=== PATIENT | female | born 1970 | race Caucasian/White ===

== ENCOUNTER 2021-01-13 15:52 | Emergency (ER) | payer SELFPAY ==
[2021-01-13 17:25] VITALS: BP 0/0; PULSE 0; RESP 0; TEMP -17.7; TEMP 0
== END 2021-01-13 17:30 | disposition left against medical advice (07) ==
LOC: UTC 15:59
PROVIDERS: Emergency Provider Physician Assistant; PCP Nurse Practitioner Family
DX: Z53.21 Procedure and treatment not carried out due to patient leaving prior to being seen by health care provider (principal)

== ENCOUNTER 2021-04-28 09:21 | Emergency (ER) | payer OTHER, SELFPAY ==
[2021-04-28 09:29] VITALS: TEMP 36.7; BMI 29.2
[2021-04-28 11:12] VITALS: BP 159/102; PULSE 73; RESP 16; TEMP 36.9; O2SAT 100; BMI 29.2
--- NOTE | 2021-04-28 11:12 | HMH.EDUTC ---
[facility] [place] Clinical Impression: Cellulitis of leg without foot, right Disposition: Home, Self-Care Condition on Discharge: Good Instructions: Cellulitis Additional Instructions: Drink plenty of fluids. Take ibuprofen for pain. I sent in a prescription to your pharmacy. Take the medications as directed. Follow up with your regular doctor. GO TO THE ER FOR ANY WORSENING SYMPTOMS, ESPECIALLY ANY WORSENING LEG PAIN, SHORTNESS OF BREATH, CHEST PAIN ETC. Prescriptions: Ibuprofen [Ibuprofen 600mg Tablet] 600 mg PO Q6HP PRN #30 tab PRN Reason: Mild Pain Transmission Status: Received by [id number] Sulfamethoxazole/Trimethoprim [Bactrim DS tablet] 1 each PO BID 10 Days #20 tab Transmission Status: Received by [id number] cephALEXin [cephALEXin 500mg capsule] 500 mg PO Q6H 10 Days #40 cap Transmission Status: Received by [id number] Referrals: Provider,Referral, MD [Primary Care Provider] - Forms: Work/School Release Time of Disposition: 12:14 Medical Decision Making - Medical Records Medical records reviewed: No: I reviewed the patient's medical records. - Ministerio Inquiry Pt receiving controlled substance: No Vital Signs: 04/28/21 09:29 04/28/21 11:12 04/28/21 12:21 Temperature 98.1 F 98.4 F 98.4 F Temperature Source Oral Oral Pulse Rate 73 Pulse Rate [Left] 73 Respiratory Rate 16 16 Blood Pressure 159/102 H Blood Pressure [Right Arm] 159/102 H Blood Pressure Mean [Right Arm] 121 02 Sat by Pulse Oximetry 100 Medical Decision Narrative: she refused venous doppler of her leg. she refused transfer to the er for further evaluation. [facility] [place] - General Stated complaint: possible spider bite on lower leg Time Seen by Provider: 04/28/21 11:12 Mode of Arrival: Ambulatory Source of Information: Patient Limitations: No Limitations Description of Symptoms (Recalled from Triage Doc. by RN): pt c/o insect bite on her right lower leg. pt states she first noticed it x2 days ago. pt states she woke up this morning and it was painful to the touch so she wanted it to be evaluated. - History of Present Illness Provider Complaint: She c/o a red area on her right rodriguez area and pain and tenderness of that area for the past 2 days. - Related Data Previous Rx's Medication Instructions Recorded Ibuprofen [Ibuprofen 600mg 600 mg PO Q6HP PRN #30 tab 04/28/21 Tablet] Sulfamethoxazole/Trimethoprim 1 each PO BID 10 Days #20 tab 04/28/21 [Bactrim DS tablet] cephALEXin [cephALEXin 500mg 500 mg PO Q6H 10 Days #40 cap 04/28/21 capsule] Allergies Allergy/AdvReac Type Severity Reaction Status Date / Time No Known Allergies Allergy Verified 04/28/21 11:16 [facility] History - Hepatitis A Screen Attestation statement:: This patient has been screened for Hepatitis A risk factors. I have reviewed the patient's past medical history: Yes ROS Obtained: Yes All systems reviewed & no additional complaints - Constitutional Constitutional: Denies chills, Denies fever(s) - Integumentary/Breasts Skin/Breast: Reports as per HPI - Neurologic Neurologic: Denies tingling/numbness/burning sensations Physical Exam - General General appearance: alert, in no apparent distress - Head Head exam: atraumatic, normocephalic, normal inspection - Eye Eye exam: Present: normal appearance, PERRL, EOMI - ENT ENT exam: Present: normal exam, normal oropharynx, mucous membranes moist, TM's normal bilaterally, normal external ear exam - Neck Neck exam: Present: normal inspection, full ROM, trachea midline. Absent: meningismus, lymphadenopathy - Chest Chest inspection: Present: normal inspection, symmetric chest wall rise. Absent: tenderness - Respiratory Respiratory exam: Present: normal lung sounds bilaterally. Absent: respiratory distress - Cardiovascular Cardiovascular exam: Present: regular rate, normal rhythm. Absent: JVD - Abdom
[2021-04-28 12:21] VITALS: BP 159/102; PULSE 73; RESP 16; TEMP 36.9
== END 2021-04-28 12:22 | disposition home or self-care (01) ==
PROVIDERS: Emergency Provider Emergency Medicine
DX: L03.115 Cellulitis of right lower limb (principal)
CPT/HCPCS: 99212; G0463

== ENCOUNTER 2021-05-01 18:03 | Emergency (ER) | payer BC, SELFPAY ==
[2021-05-01 18:05] VITALS: BP 136/90; PULSE 68; RESP 17; TEMP 37.1; O2SAT 98; BMI 30.1
--- NOTE | 2021-05-01 18:24 | HMH.EDUTC ---
[facility] [place] Clinical Impression: Cellulitis Qualifiers: Site of cellulitis: extremity Site of cellulitis of extremity: lower extremity Laterality: right Qualified Code(s): L03.115 - Cellulitis of right lower limb Disposition: Home, Self-Care Condition on Discharge: Good Instructions: Cellulitis Additional Instructions: stop bactrium, start minocyline cool compress antibiotic cream if area worsen or does not improve return or be seen in ed follow up with pcp Prescriptions: Mupirocin [Bactroban 2% Ointment 22gm tube] 1 applicatio TP BID 7 Days #15 gm Transmission Status: [id number] Minocycline HCl [Minocycline HCl 100mg Tab*] 100 mg PO BID 7 Days #14 tab Transmission Status: Pending [id number] Referrals: Willi Davalos [Primary Care Provider] - Time of Disposition: 18:29 Medical Decision Making - Ministerio Inquiry Pt receiving controlled substance: No Vital Signs: 05/01/21 18:05 Temperature 98.7 F Temperature Source Oral Pulse Rate [Right Brachial] 68 Respiratory Rate 17 Blood Pressure [Right Arm] 136/90 Blood Pressure Mean [Right Arm] 105 Blood Pressure Source [Right Arm] Automatic Cuff Blood Pressure Position [Right Arm] Sitting 02 Sat by Pulse Oximetry 98 Oxygen Delivery Method Room Air [facility] [place] HPI - General Chief complaint: Urgent Treatment Center Stated complaint: spot on R chin Time Seen by Provider: 05/01/21 18:24 Mode of Arrival: Ambulatory Source of Information: Patient Limitations: No Limitations Description of Symptoms (Recalled from Triage Doc. by RN): PATIENT C/O SPIDER BITE TO RIGHT RODRIGUEZ. SHE REPORTS BEING SEEN IN [facility] ON MONDAY AND STARTED ON ANTIBIOTICS, BUT STATES AREA IS NOT BETTER HEENT Symptoms (Recalled from RN notes): No Resp Symptoms (Recalled from RN notes): No Skin Symptoms (Recalled from RN notes): Yes MS Symptoms (Recalled from RN notes): No Functional Status (Recalled from RN notes): WNL - History of Present Illness Provider Complaint: 50 yr old male presnets for red aore area to rt rodriguez. pt states she was laying in bed when she woke up she had a red are on leg. pt has been on bactrium and keflex but feels the area is not getting any better. - Related Data Previous Rx's Medication Instructions Recorded Ibuprofen [Ibuprofen 600mg 600 mg PO Q6HP PRN #30 tab 04/28/21 Tablet] Sulfamethoxazole/Trimethoprim 1 each PO BID 10 Days #20 tab 04/28/21 [Bactrim DS tablet] cephALEXin [cephALEXin 500mg 500 mg PO Q6H 10 Days #40 cap 04/28/21 capsule] Minocycline HCl [Minocycline HCl 100 mg PO BID 7 Days #14 tab 05/01/21 100mg Tab*] Mupirocin [Bactroban 2% Ointment 1 applicatio TP BID 7 Days #15 gm 05/01/21 22gm tube] Allergies Allergy/AdvReac Type Severity Reaction Status Date / Time No Known Allergies Allergy Verified 04/28/21 11:16 - Worker's Comp Is this a Worker's Comp case?: No [facility] History - Hepatitis A Screen Drug use history?: No High risk sexual behaviors?: No History of sexually transmitted infection?: No Currently employed?: No Childcare worker?: No Do you have indoor plumbing?: Yes Do you have electricity?: Yes Attestation statement:: This patient has been screened for Hepatitis A risk factors. I have reviewed the patient's past medical history: Yes ROS Obtained: Yes Systems reviewed as appropriate & no additional complaints - Constitutional Constitutional: Reports system reviewed and no additional complaints, except as docu, Denies fatigue, Denies fever(s) - Eyes Eyes: Reports system reviewed and no additional complaints, except as docu, Denies blurry vision - ENT Ears, Nose, Mouth, and Throat: Reports system reviewed and no additional complaints, except as docu, Denies sore throat - Cardiovascular Cardiovascular: Reports system reviewed and no additional complaints, except as docu, Denies chest pain - Respiratory Respiratory: Reports system reviewed and no additional complain
[2021-05-01 18:25] VITALS: BP 136/90; PULSE 68; RESP 17; TEMP 37.1; O2SAT 98
== END 2021-05-01 18:30 | disposition home or self-care (01) ==
PROVIDERS: Emergency Provider Emergency Medicine; PCP Pediatrics
DX: L03.115 Cellulitis of right lower limb (principal); Z79.1 Long term (current) use of non-steroidal anti-inflammatories (NSAID); Z79.899 Other long term (current) drug therapy; W57.XXXA Bitten or stung by nonvenomous insect and other nonvenomous arthropods, initial encounter; Y92.013 Bedroom of single-family (private) house as the place of occurrence of the external cause
CPT/HCPCS: 99213; G0463

== ENCOUNTER 2021-07-21 14:30 | Outpatient (RCR) | payer BC, SELFPAY ==
--- NOTE | 2021-07-13 10:42 | HMH.PTOPEV ---
PT Outpatient Evaluation Rehab PT Outpatient Evaluation Start: 07/13/21 09:12 Freq: Status: Active Protocol: Document 07/13/21 09:12 LAILA (Rec: 07/13/21 10:41 LAILA [id number]) Electronically Signed By John Morales PT 07/13/21 09:12 Outpatient Therapy Subjective History Subjective History THis is the initial Physical Therapy evaluation for Leticia Germain. Pt is a 51 y/o female referred to PT for c/o LBP. Pt reports her low back has been hurting for ~ 8 months. 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 Pt reports yesterday she was putting a dust skirt on a tiburcio size bed by herself and she aggravated the L side of her low back. Pt repports most pain is in lumbar area but does have some pain into RLE post thigh, Chief Complaint Pain Symptom Type Ache,Sharp,Burning Symptoms Relieved By Rest/Positioning Symptoms Aggravated By Physical Activity,Walking, Lifting Prior Functional Limitations None Current Functional Limitations Lifting,Housework,Standing, Recreation Activity,Walking, Bending/Stooping Symptom Description Intermittent Level of pain today (0-10) 7 Pain scale - at its best (0-10) 0 Pain scale - at its worst (0-10) 10 Outpatient Therapy Assessment Impairments Problems/Impairmments Palpation Tenderness,Impaired Walking,Impaired Standing, Impaired Lifting,Impaired Household Care,Impaired Recreational Activities, Impaired Work Activities, Subjective C/O Pain Prognosis Rehab Potential Fair Clinical Impression Consistent with Diagnosis Yes Short Term Goals Number of Weeks 3 Decreased Palpation Tenderness Yes: min Increase Range of Motion Yes: WFL w/out pain Increase Ability to Walk Yes: 20 min Increase Ability to Stand Yes: 20 min Decrease Subjective C/O Pain Yes: 09/05 Patient to be Ind w/ HEP Yes 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
== END 2021-08-21 14:35 | disposition home or self-care (01) ==
LOC: PT 14:30
PROVIDERS: PCP Family Medicine; Visit Provider Family Medicine
DX: M54.50 Low back pain, unspecified (principal); M54.31 Sciatica, right side
CPT/HCPCS: 97010; 97012; 97014; 97110; 97163; G0283

== ENCOUNTER → 2021-09-09 14:11 | Outpatient (CLI) | payer BC, SELFPAY ==
[2021-09-09 14:18] LABS: Basophils # 0.1 K/mm3 (0-0.2); Basophils % 1.4 % (0.1-2.0); Eosinophils # 0.1 K/mm3 (0.0-0.4); Eosinophils % 1.4 % (0.1-12.0); Hematocrit 37.6 % (37.0-47.0); Hemoglobin 12.1 g/dL (12.2-16.2); Lymphocytes # 1.6 K/mm3 (0.7-4.5); Lymphocytes % 37.9 % (10-50); Mean Corpuscular HGB Conc 32.2 g/dL (31.8-35.4); Mean Corpuscular Hemoglobin 26.9 pg (27.0-31.2); Mean Corpuscular Volume 83.4 fl (81-99); Mean Platelet Volume 8.9 fl (7.4-10.4); Monocytes # 0.3 K/mm3 (0.1-1.0); Monocytes % 7.3 % (1.7-9.3); Neutrophils # 2.3 K/mm3 (1.8-7.8); Neutrophils % 52.1 % (37.0-80.0); Platelet Count 395 K/mm3 (142-424); Red Blood Count 4.51 M/mm3 (4.20-5.40); Red Cell Distribution Width 15.1 % (11.5-17.5); White Blood Count 4.3 K/mm3 (4.8-10.8)
[2021-09-09 14:22] LABS: Alanine Aminotransferase 17 U/L (12-78); Albumin Level 4.4 g/dl (3.5-5.0); Albumin/Globulin Ratio 1.4 (1.1-1.8); Alkaline Phosphatase 97 U/L (38-126); Anion Gap 11.4 mEq/L (5-15); Aspartate Amino Transferase 21 U/L (14-36); Bilirubin,Total 0.4 mg/dl (0.2-1.3); Blood Urea Nitrogen 11 mg/dl (7-17); Calcium 9.8 mg/dl (8.4-10.2); Carbon Dioxide 29 mmol/L (22.0-30.0); Chloride 103 mmol/L (98-107); Chol/HDL Ratio 5.2 (1-3.5); Cholesterol 320 mg/dl (140-200); Estimated Glomerular Filt Rate 106 ml/min (>60); GFR (African American) 128 ML/MIN (>60); Globulin 3.2 g/dL (1.3-3.2); Glucose 98 mg/dl (74-100); HDL Cholesterol 61 mg/dl (40-60); Potassium 4.4 mmoL/L (3.5-5.1); Sodium 139 mmol/L (136-145); Total Protein,Serum 7.6 g/dl (6.3-8.2); Triglycerides 209 mg/dl (30-150); VLDL Cholesterol 42 mg/dL (0-40)
[2021-09-09 14:33] LABS: Direct LDL Cholesterol 215.42 mg/dL (100-129)
[2021-09-09 14:34] LABS: 25-OH Vitamin D, Total 16.7 ng/mL (30-100)
[2021-09-09 14:53] LABS: Thyroid Stimulating Hormone 1.08 uIU/mL (0.465-4.68)
== END ==
PROVIDERS: PCP Family Medicine; Visit Provider Family Medicine
DX: Z00.00 Encounter for general adult medical examination without abnormal findings (principal); N15.9 Renal tubulo-interstitial disease, unspecified; E55.9 Vitamin D deficiency, unspecified
CPT/HCPCS: 80053; 80061; 82306; 84443; 85025; 87086

== ENCOUNTER 2021-12-10 14:41 | Emergency (ER) | payer BC, SELFPAY ==
[2021-12-10 14:53] VITALS: BP 154/97; PULSE 83; RESP 19; TEMP 36.6; O2SAT 100
[2021-12-10 15:00] LABS: Influenza A, PCR Not Detected (NotDetected); Influenza B, PCR Not Detected (NotDetected)
[2021-12-10 15:20] LABS: Coronavirus 19, PCR Detected (NotDetected)
--- NOTE | 2021-12-10 15:59 | PC.NURSE ---
at the bedside
--- NOTE | 2021-12-10 16:04 | HMH.EDGENADL ---
Discharge Plan Disposition Patient Disposition: Home, Self-Care Condition: Good Prescriptions Prescriptions: New amoxicillin 500 mg capsule 500 mg PO TID Qty: 30 0RF hydrocodone-acetaminophen 5-325 mg tablet 1 tab PO Q6H PRN (Reason: pain) Qty: 10 0RF Paxlovid (EUA) 300 mg (150 mg x 2)-100 mg tablets,dose pack See Rx Instructions .Route .COMPLEX Qty: 30 0RF Rx Instructions: take TWO 150 mg tablets of nirmatrelvir with ONE 100 mg tablet of ritonavir twice daily for 5 days No Action lorazepam 0.5 mg tablet 0.5 mg PO DAILY PRN (Reason: anxiety) Qty: 15 1RF cyclobenzaprine 10 mg tablet 10 mg PO Q8H PRN (Reason: muscle spasm) Qty: 90 0RF tramadol 50 mg tablet 50 mg PO BID PRN (Reason: pain) Qty: 60 1RF Rx Instructions: take one before physical therapy rosuvastatin [Crestor] 40 mg tablet 40 mg PO DAILY Qty: 90 3RF carisoprodol [Soma] 350 mg tablet 350 mg PO BID PRN (Reason: muscle pain) Qty: 60 1RF Rx Instructions: use sparingly omeprazole 40 mg capsule,delayed release(DR/EC) See Rx Instructions .ROUTE .COMPLEX Qty: 90 0RF Dose Instruction: TAKE ONE CAPSULE BY MOUTH DAILY Rx Instructions: TAKE ONE CAPSULE BY MOUTH DAILY metoprolol succinate 100 mg tablet extended release 24 hr See Rx Instructions .ROUTE .COMPLEX Qty: 90 0RF Dose Instruction: TAKE 0.5 TABLET BY MOUTH TWICE DAILY Rx Instructions: TAKE 0.5 TABLET BY MOUTH TWICE DAILY Referrals Follow up/Referrals: Rashawn De Jesus MD [Primary Care Provider] - See instructions Activity Restrictions/Add. Instructions Additional Instructions/Restrictions: Amoxicillin as prescribed. Paxlovid as prescribed for COVID. Tolono as needed for pain. Follow-up with primary care provider if not improving in 4 to 5 days. ADDITIONAL INSTRUCTIONS FOR COVID-19: Rest, drink plenty of fluids. Ibuprofen for fever and/or aches and pains. Monitor your symptoms. IF YOU HAVE AN EMERGENCY WARNING SIGN (INCLUDING TROUBLE BREATHING), SEEK EMERGENCY MEDICAL CARE IMMEDIATELY. COVID-19 Isolation: People with COVID-19 should isolate for 5 days. Then if they are asymptomatic (no symptoms) or their symptoms are resolving (without fever for 24 hours), follow that by 5 days of wearing a mask when around others to minimize the risk of infecting people you encounter. If you test positive for COVID-19 and never develop symptoms, day 0 is the day of your positive viral test (based on the date you were tested) and day 1 is the first full day after your positive test. If you develop symptoms after testing positive, your 5-day isolation period must start over. Day 0 is your first day of symptoms. Day 1 is the first full day after your symptoms developed. What to do: Stay in a separate room from other household members, if possible. Use a separate bathroom, if possible. Avoid contact with other members of the household and pets. Don?t share personal household items, like cups, towels, and utensils. Wear a mask when around other people if able. Clinical Impressions Clinical Impression: Acute left otitis media, COVID-19 virus infection Discharge ED Provider: Angel Ledezma General Adult HPI General Chief complaint: Upper Respiratory Infection Stated complaint: left ear pain, h/a, congestion Time Seen by Provider: 12/10/21 15:50 Mode of Arrival: Ambulatory Source of Information: Patient Limitations: No Limitations Description of Symptoms (Recalled from ER Triage Doc. by RN): Pt c/o left ear pain since last night. Advises that she has had sinus congestion and cough x3 days and it worsened last night. History of Present Illness HPI narrative: Primary complaint is severe left ear pain since last night. States that she was unable to get into her primary care provider. She also has cough and a sinus infection. She says initially she thought she had pneumonia but her cough is better and she is ge
[2021-12-10 16:27] VITALS: BP 137/78; PULSE 79; RESP 19; TEMP 37.1; O2SAT 97
== END 2021-12-10 16:28 | disposition home or self-care (01) ==
PROVIDERS: Emergency Provider Emergency Medicine; PCP Family Medicine
DX: U07.1 COVID-19 (principal); H66.92 Otitis media, unspecified, left ear
CPT/HCPCS: 99283; C9803; U0003; U0005

== ENCOUNTER 2021-12-24 13:59 | Inpatient (IN) | payer BC, SELFPAY ==
[2021-12-24 14:00] VITALS: BP 114/84; PULSE 101; RESP 17; TEMP 36.8; O2SAT 99
[2021-12-24 14:30] VITALS: BP 144/97; PULSE 121; RESP 20; O2SAT 95
--- NOTE | 2021-12-24 14:32 | PC.NURSE ---
DR. ROMERO AT BEDSIDE FOR EVALUATION
[2021-12-24 14:34] LABS: Basophils # 0.1 K/mm3 (0-0.2); Basophils % 0.6 % (0.1-2.0); Eosinophils # 0.1 K/mm3 (0.0-0.4); Eosinophils % 0.7 % (0.1-12.0); Hematocrit 40.8 % (37.0-47.0); Hemoglobin 13.4 g/dL (12.2-16.2); Lymphocytes # 1.1 K/mm3 (0.7-4.5); Lymphocytes % 7.7 % (10-50); Mean Corpuscular HGB Conc 32.8 g/dL (31.8-35.4); Mean Corpuscular Hemoglobin 26.4 pg (27.0-31.2); Mean Corpuscular Volume 80.6 fl (81-99); Monocytes # 0.4 K/mm3 (0.1-1.0); Monocytes % 2.8 % (1.7-9.3); Neutrophils # 12.6 K/mm3 (1.8-7.8); Neutrophils % 88.2 % (37.0-80.0); Platelet Count 366 K/mm3 (142-424); Red Blood Count 5.06 M/mm3 (4.20-5.40); Red Cell Distribution Width 14.8 % (11.5-17.5); White Blood Count 14.2 K/mm3 (4.8-10.8)
--- NOTE | 2021-12-24 14:39 | HMH.EDGENADL ---
Discharge Plan Disposition Patient Disposition: Admitted As Inpatient Condition: Fair Chief Complaint: Nausea/Vomiting/Diarrhea Prescriptions Prescriptions: No Action clonazepam [Klonopin] 1 mg tablet 1 mg PO BID Qty: 60 2RF Rx Instructions: sparingly when able cyclobenzaprine 10 mg tablet 10 mg PO Q8H PRN (Reason: muscle spasm) Qty: 90 0RF tramadol 50 mg tablet 50 mg PO BID PRN (Reason: pain) Qty: 60 1RF Rx Instructions: take one before physical therapy rosuvastatin [Crestor] 40 mg tablet 40 mg PO DAILY Qty: 90 3RF carisoprodol [Soma] 350 mg tablet 350 mg PO BID PRN (Reason: muscle pain) Qty: 60 1RF Rx Instructions: use sparingly omeprazole 40 mg capsule,delayed release(DR/EC) See Rx Instructions .ROUTE .COMPLEX Qty: 90 0RF Dose Instruction: TAKE ONE CAPSULE BY MOUTH DAILY Rx Instructions: TAKE ONE CAPSULE BY MOUTH DAILY metoprolol succinate 100 mg tablet extended release 24 hr See Rx Instructions .ROUTE .COMPLEX Qty: 90 0RF Dose Instruction: TAKE 0.5 TABLET BY MOUTH TWICE DAILY Rx Instructions: TAKE 0.5 TABLET BY MOUTH TWICE DAILY hydrocodone-acetaminophen 5-325 mg tablet 1 tab PO Q6H PRN (Reason: pain) Qty: 10 0RF Paxlovid (EUA) 300 mg (150 mg x 2)-100 mg tablets,dose pack See Rx Instructions .Route .COMPLEX Qty: 30 0RF Rx Instructions: take TWO 150 mg tablets of nirmatrelvir with ONE 100 mg tablet of ritonavir twice daily for 5 days Referrals Follow up/Referrals: Rashawn De Jesus MD [Primary Care Provider] - See instructions Instructions Patient Instructions: DI for Diarrhea and Traveler's Diarrhea -- Adult, DI for Diarrhea and Traveler's Diarrhea -- Child, DI for Nausea -- Adult, DI for Nausea -- Child Discharge ED Provider: Riley Marcelo General Adult HPI General Chief complaint: Nausea/Vomiting/Diarrhea Stated complaint: Vomitting Time Seen by Provider: 12/24/21 14:25 Mode of Arrival: Ambulatory Source of Information: Patient Limitations: No Limitations Description of Symptoms (Recalled from ER Triage Doc. by RN): PT REPORTS NAUSEA AND VOMITING SINCE 0300 THIS AM. DARK EMESIS NOTED History of Present Illness HPI narrative: Patient has past medical history of hypertension, previous bowel obstruction status postsurgical intervention, recently diagnosed COVID who presents to the emergency department for evaluation of vomiting. History is obtained by patient at bedside. She was diagnosed with COVID approximately last or Monday. Occurring at 2 AM patient had acute onset of intractable green and brown vomiting. Patient has not passed flatus or had a bowel movement since onset of vomiting. Patient states that her abdomen feels uncomfortable however not painful. Denies dysuria, chest pain. No other acute complaints at this time. Related Data Previous Rx's Medication Instructions Recorded cyclobenzaprine 10 mg tablet 10 mg PO Q8H PRN muscle spasm #90 09/09/21 tabs tramadol 50 mg tablet 50 mg PO BID PRN pain #60 tabs 09/09/21 rosuvastatin 40 mg tablet (Crestor) 40 mg PO DAILY #90 tabs 09/13/21 carisoprodol 350 mg tablet (Soma) 350 mg PO BID PRN muscle pain #60 11/11/21 tabs metoprolol succinate 100 mg See Rx Instructions .Route 11/24/21 tablet,extended release 24 hr .COMPLEX #90 tabs omeprazole 40 mg capsule,delayed See Rx Instructions .Route 11/24/21 release .COMPLEX #90 caps hydrocodone 5 mg-acetaminophen 325 1 tab PO Q6H PRN pain #10 tabs 12/10/21 mg tablet nirmatrelvir 300 mg (150 mg See Rx Instructions .Route 12/10/21 x2)-ritonavir 100 mg tablet,dose .COMPLEX #30 tabs pack(EUA) (Paxlovid) clonazepam 1 mg tablet (Klonopin) 1 mg PO BID #60 tabs 12/21/21 Allergies Allergy/AdvReac Type Severity Reaction Status Date / Time No Known Allergies Allergy Verified 12/21/21 15:02 [facility] Medical History (Updated 12/24/21 @ 14:36 by Lee Ann Truong RN) Hypertension Surgical
[2021-12-24 14:40] LABS: MANUAL DIFFERENTIAL MANUAL DIFFERENTIAL (MANUAL DIFF)
--- NOTE | 2021-12-24 14:43 | PC.NURSE ---
faxed request for records they advised they had no ct results for pt
--- NOTE | 2021-12-24 14:49 | PC.NURSE ---
placed call to [facility] for surgical notes, they advised they had none for this year.
--- NOTE | 2021-12-24 14:52 | CT_ITS ---
PROCEDURE INFORMATION: Exam: CT Abdomen And Pelvis Without And With Contrast Exam date and time: 12/24/2021 3:22 PM Age: 51 years old Clinical indication: Abdominal pain; Generalized; Additional info: Abd pain TECHNIQUE: Imaging protocol: Computed tomography of the abdomen and pelvis without and with contrast. Radiation optimization: All CT scans at this facility use at least one of these dose optimization techniques: automated exposure control; mA and/or kV adjustment per patient size (includes targeted exams where dose is matched to clinical indication); or iterative reconstruction. Contrast material: ISO 370; Contrast volume: 75 ml; Contrast route: INTRAVENOUS (IV); COMPARISON: No relevant prior studies available. FINDINGS: Lungs: There is airspace disease in the right lower lobe, with hazy reticulo-nodular opacities and some ground-glass opacities, suspicious for pneumonia. No focal consolidation. Calcified right pulmonary granulomas. No acute findings in the visualized left lung. Mediastinal space: A slightly thickened appearance of the distal esophagus series 5, image 1. Diaphragm: Suspect minimal hiatal hernia. Liver: Mild hepatomegaly. No mass. Gallbladder and bile ducts: Gallbladder not imaged, correlate for cholecystectomy. The intrahepatic biliary tree appears normal. The common duct appears borderline dilated approximate 1.1 cm which may be benign reservoir effect post cholecystectomy rather than obstruction, there is no intrahepatic biliary dilatation. No calcified stones. Pancreas: The pancreas is normal. Spleen: No splenomegaly. Calcified splenic granulomas. Adrenal glands: The adrenal glands are normal. Kidneys and ureters: There is mild left hydronephrosis and proximal hydroureter, with an obstructing calcified stone in the mid left ureter located approximately 4 cm above the pelvic inlet at the approximate L3-L4 level. The stone measures approximately 4 x 3 x 5 mm diameter, series 5, image 64 and coronal images 40-41, with HU density of 781. This appears likely faintly visible on the fur comber topogram, but suboptimally seen due to large body habitus and small size of the stone. There is a possible additional punctate nonobstructing stone at the posterior upper left kidney series 5, image 31. Adjacent to this is a small focus of left renal cortical thinning or possible 5 mm cystic lesion, too small to accurately characterize, coronal series 1001, image 56. There are 2 small nonobstructing right renal calculi at the mid and lower pole, but no hydronephrosis, or obstructing ureteral stones on the right. Question 5 mm anterior right renal cortical cystic lesion series 5, image 46, too small to accurately characterize. Stomach and bowel: There is no evidence of intestinal perforation or obstruction. There are some scattered small intestinal air-fluid levels, but no dilated loops or mucosal thickening. A thickened appearance of the esophagus on series 5, image 1, wall up to 1 cm thickness, raising the possibility of esophagitis or Coleman's esophagus. Minimal hiatal hernia. Appendix: No findings of appendicitis. Intraperitoneal space: There is no significant free intraperitoneal fluid. There is no free intraperitoneal air. Vasculature: There is no aortic aneurysm. No portal venous gas. Lymph nodes: No significantly enlarged lymph nodes by short axis criteria. Urinary bladder: The bladder is normal. Reproductive: Post hysterectomy. Unremarkable as visualized. Bones/joints: There is no evidence of acute fracture. Posterior disc bulge or protrusion at L5-S1, no high-grade stenosis as visualized. Mild bilateral sacroiliitis. Soft tissues:
--- NOTE | 2021-12-24 14:56 | PC.NURSE ---
NO ORAL CONTRAST GIVEN PT UNABLE TO TOLERATE DUE TO VOMITING
[2021-12-24 15:00] VITALS: BP 134/90; PULSE 104; RESP 20; O2SAT 94
[2021-12-24 15:05] LABS: Alanine Aminotransferase 49 U/L (12-78); Albumin Level 4.7 g/dl (3.5-5.0); Albumin/Globulin Ratio 1.2 (1.1-1.8); Alkaline Phosphatase 134 U/L (38-126); Anion Gap 19.6 mEq/L (5-15); Aspartate Amino Transferase 56 U/L (14-36); Bilirubin,Total 0.7 mg/dl (0.2-1.3); Blood Urea Nitrogen 15 mg/dl (7-17); Calcium 9.5 mg/dl (8.4-10.2); Carbon Dioxide 27 mmol/L (22.0-30.0); Chloride 96 mmol/L (98-107); Creatinine Clearance Estimated 120 mL/min (50-200); Estimated Glomerular Filt Rate 89 ml/min (>60); GFR (African American) 107 ML/MIN (>60); Glucose 124 mg/dl (74-100); Lipase 43 U/L (23-300); Potassium 4.6 mmoL/L (3.5-5.1); Sodium 138 mmol/L (136-145); Total Protein,Serum 8.7 g/dl (6.3-8.2)
[2021-12-24 15:13] LABS: Lymphocytes % 9 % (10-50); Monocytes % 2 % (2-9); Neutrophils % 89 % (42-76); Total Cells Counted 100
[2021-12-24 15:14] LABS: Platelet Estimate Normal; RBC Morphology Normal
--- NOTE | 2021-12-24 15:20 | PC.NURSE ---
1520 ROUNDED ON PT, UA COLLECTED AND SENT TO LAB. PT BACK TO BED AND WARM BLANKET PROVIDED
--- NOTE | 2021-12-24 15:28 | PC.NURSE ---
PT TO CT AT THIS TIME
[2021-12-24 15:32] LABS: Microscopic, Urine URINE MICROSCOPIC (MICROSCOPIC)
[2021-12-24 15:34] LABS: Appearance,Urine CLEAR (Clear); Bilirubin,Urine Negative (Negative); Blood, Urine Negative (Negative); Color,Urine YELLOW (Yellow); Glucose,Urine (UA) Negative (Negative); Ketones,Urine Negative (Negative); Leukocyte Esterase,Urine 1+ (Negative); Nitrate,Urine Negative (Negative); Protein,Urine Negative (Negative); Urobilinogen,Urine 0.2 EU/dl (0.2)
[2021-12-24 15:47] LABS: Bacteria,Urine Trace /lpf
--- NOTE | 2021-12-24 16:35 | PC.NURSE ---
ROUNDED ON PT, REPORTD EMESIE. REQUESTING PAIN MEDICATION, ME NOTIFIED
[2021-12-24 16:59] LABS: Lactic Acid 1.8 mmol/L (0.7-2.1)
--- NOTE | 2021-12-24 17:11 | PC.NURSE ---
PT MEDICATED AT THIS TIME PER EMAR, NO NEEDS VOICED
[2021-12-24 20:04] LABS: Coronavirus 19, PCR Not Detected (NotDetected); Influenza A, PCR Not Detected (NotDetected); Influenza B, PCR Not Detected (NotDetected)
--- NOTE | 2021-12-24 21:57 | EXP.HP ---
History of Present Illness *Admission Date: 12/24/21 *Reason for visit:: Nausea, Vomiting and diarrhea *History of present illness: I saw and examined this patient in the ED for admission to the MED/SURG unit. This 51 y.o. female presented to the emergency department for evaluation of nausea and vomiting. She was diagnosed with COVID last or Monday.? During her stay in the ED she experienced episodes of intractable green and brown vomiting.? Patient has not passed flatus or had a bowel movement since onset of vomiting.? Patient states that her abdomen feels uncomfortable however not painful.? Denies dysuria, chest pain.? No other acute complaints at this time. Patient has past medical history of hypertension, previous bowel obstruction status postsurgical intervention,and recently diagnosed COVID. Evaluation in the ED revealed a positive CT scan for a 5 mm left ureteral stone with mild hydronephrosis and hydroureter.? Findings were suspicious for right lower lobe pneumonia with groundglass opacities.? Patient is COVID-positive.? There is a small incidental hiatal hernia with thickening of undetermined etiology.? Some scattered air-fluid levels in the bowel however no transition point, no edema, no dilation.? Patient is COVID-positive.? Ceftriaxone was administered in the ED.? Upon repeat evaluation patient had persistent vomiting for which Phenergan was administered.?Treatment plan will be continued on the unit. ? PFSH PFSH Medical History History of gastroesophageal reflux (GERD) Hyperlipidemia Hypertension Surgical History H/O section History of hysterectomy S/P cholecystectomy Family History Other Cancer Family history of diabetes mellitus type II Family history of hypertension Social History Smoking Status: Never smoker alcohol intake: never current occupational status: employed Travel in the last 8 weeks: None household members: significant other housing: house Review of Systems Review of Systems Review of systems:: pertinent systems reviewed and negative unless documented below Constitutional Constitutional: Reports system reviewed and no additional complaints, except as documented, Reports as per HPI, Reports chills, Reports fatigue and Reports headache(s) Eyes Eyes: Reports system reviewed and no additional complaints, except as documented and Reports as per HPI ENT Ears, Nose, Mouth, and Throat: Reports system reviewed and no additional complaints, except as documented, Reports as per HPI and Reports headache(s) *Cardiovascular Cardiovascular: Reports system reviewed and no additional complaints, except as documented, Reports as per HPI, Denies chest pain, Denies chest pain at rest, Denies chest pain with activity and Denies dyspnea *Respiratory Respiratory: Reports system reviewed and no additional complaints, except as documented, Reports as per HPI, Denies cough and Denies dyspnea *Gastrointestinal Gastrointestinal: Reports system reviewed and no additional complaints, except as documented, Reports as per HPI, Reports abdominal pain, Reports coffee ground emesis, Denies constipation, Reports nausea and Reports vomiting *Genitourinary Genitourinary: Reports system reviewed and no additional complaints, except as documented, Reports as per HPI and Denies difficulty voiding *Musculoskeletal Musculoskeletal: Reports system reviewed and no additional complaints, except as documented and Reports as per HPI Integumentary/Breasts Skin/Breast: Reports system reviewed and no additional complaints, except as documented, Reports as per HPI and Denies rash *Neurologic Neurologic: Reports system reviewed and no additional complaints, except as documented, Reports as per HPI and Reports headache(s) Psyc
--- NOTE | 2021-12-24 22:10 | PC.NURSE ---
patient up to floor via wheelchair @ this time.
[2021-12-24 22:17] VITALS: BP 137/87; PULSE 91; RESP 20; TEMP 36.8; O2SAT 94
[2021-12-24 23:23] VITALS: BP 117/69; PULSE 95; RESP 20; TEMP 36.7; O2SAT 99; BMI 29.1
[2021-12-25] VITALS: O2SAT 99
[2021-12-25 04:00] VITALS: BP 115/88; PULSE 93; RESP 18; TEMP 37.3; O2SAT 96
--- NOTE | 2021-12-25 04:00 | PC.NURSE ---
pt has had some vomiting since arriving to floor, has also complained of pain one time this shift, has ambulated to BR with standby assist, bed alarm on for safety, has also complained of some acid reflux, remains on room air with O2 sats 99%
[2021-12-25 05:00] VITALS: BMI 29.4
[2021-12-25 07:21] LABS: Basophils % 0.6 % (0.1-2.0); Chloride 102 mmol/L (98-107); Eosinophils % 0.5 % (0.1-12.0); Hematocrit 38.3 % (37.0-47.0); Hemoglobin 12.1 g/dL (12.2-16.2); Lymphocytes # 1.9 K/mm3 (0.7-4.5); Lymphocytes % 27.2 % (10-50); Mean Corpuscular HGB Conc 31.7 g/dL (31.8-35.4); Mean Corpuscular Hemoglobin 26.1 pg (27.0-31.2); Mean Corpuscular Volume 82.3 fl (81-99); Mean Platelet Volume 8.6 fl (7.4-10.4); Monocytes # 0.4 K/mm3 (0.1-1.0); Monocytes % 5.8 % (1.7-9.3); Neutrophils # 4.6 K/mm3 (1.8-7.8); Neutrophils % 65.9 % (37.0-80.0); Platelet Count 297 K/mm3 (142-424); Red Blood Count 4.65 M/mm3 (4.20-5.40); White Blood Count 6.9 K/mm3 (4.8-10.8)
[2021-12-25 07:22] LABS: Potassium 4.4 mmoL/L (3.5-5.1); Sodium 141 mmol/L (136-145)
[2021-12-25 07:24] LABS: Blood Urea Nitrogen 15 mg/dl (7-17); Creatinine Clearance Estimated 119 mL/min (50-200); Estimated Glomerular Filt Rate 89 ml/min (>60); GFR (African American) 107 ML/MIN (>60)
[2021-12-25 07:25] LABS: Anion Gap 13.4 mEq/L (5-15); Calcium 8.7 mg/dl (8.4-10.2); Carbon Dioxide 30 mmol/L (22.0-30.0); Glucose 105 mg/dl (74-100); Magnesium 2.2 mg/dl (1.6-2.3)
[2021-12-25 08:08] VITALS: BP 141/90; PULSE 91; RESP 18; TEMP 37.1; O2SAT 95
--- NOTE | 2021-12-25 11:01 | EXP.PN ---
Subjective *Date: 12/25/21 *Time: 11:01 Interval history: Date of service 12/25/2021 The patient reports that she is feeling better from her presentation to the ED. Nursing staff (Amy DREW) report that she remains afebrile with improved heart rates and stable blood pressures. She is saturating appropriately on room air. We have reviewed and discussed her morning labs which identified improvement compared to her presentation. Her leukocytosis has resolved. Her creatinine is normal. CT of the abdomen pelvis identifies left pyelonephritis with hydronephrosis and left ureteral stone obstruction. She is tolerating her IV antibiotic and alpha-satinder therapy. Exam Data for Last 24 hours Vital signs and Labs for Last 24 Hours: Temp Pulse Resp BP Pulse Ox 98.7 F 91 H 18 141/90 H 95 12/25/21 08:08 12/25/21 08:08 12/25/21 08:08 12/25/21 08:08 12/25/21 08:08 Laboratory Results - last 24 hr 12/24/21 14:10: WBC 14.2 H, RBC 5.06, Hgb 13.4, Hct 40.8, MCV 80.6 L, MCH 26.4 L, MCHC 32.8, RDW 14.8, Plt Count 366, MPV 9.0, Neut % (Auto) 88.2 H, Lymph % (Auto) 7.7 L, [place] % (Auto) 2.8, Eos % (Auto) 0.7, Baso % (Auto) 0.6, Neut # (Auto) 12.6 H, Lymph # (Auto) 1.1, [place] # (Auto) 0.4, Eos # (Auto) 0.1, Baso # (Auto) 0.1, Total Counted 100, Neutrophils % (Manual) 89 H, Lymphocytes % (Manual) 9 L, Monocytes % (Manual) 2, Platelet Estimate Normal, RBC Morphology Normal 12/24/21 14:10: Sodium 138, Potassium 4.6, Chloride 96 L, Carbon Dioxide 27, Anion Gap 19.6 H, BUN 15, Creatinine 0.70, Estimated Creat Clear 120, Estimated GFR 89, Est GFR ( Amer) 107, Glucose 124 H, Calcium 9.5, Total Bilirubin 0.7, AST 56 H, ALT 49, Alkaline Phosphatase 134 H, Total Protein 8.7 H, Albumin 4.7, Globulin 4.0 H, Albumin/Globulin Ratio 1.2, Lipase 43 12/24/21 15:20: Urine Color Yellow, Urine Appearance Clear, Urine pH 8.0, Ur Specific [place] 1.010, Urine Protein Negative, Urine Glucose (UA) Negative, Urine Ketones Negative, Urine Blood Negative, Urine Nitrate Negative, Urine Bilirubin Negative, Urine Urobilinogen 0.2, Ur Leukocyte Esterase 1+ A, Urine WBC 5-10, Ur Squamous Epith Cells 3-5, Urine Bacteria Trace 12/24/21 16:35: Lactate 1.8 12/24/21 19:42: SARS-CoV-2 (PCR) Not detected, Influenza A Untype (PCR) Not detected, Influenza Type B (PCR) Not detected 12/25/21 06:45: WBC 6.9 D, RBC 4.65, Hgb 12.1 L, Hct 38.3, MCV 82.3, MCH 26.1 L, MCHC 31.7 L, RDW 15.0, Plt Count 297, MPV 8.6, Neut % (Auto) 65.9, Lymph % (Auto) 27.2, [place] % (Auto) 5.8, Eos % (Auto) 0.5, Baso % (Auto) 0.6, Neut # (Auto) 4.6, Lymph # (Auto) 1.9, [place] # (Auto) 0.4, Eos # (Auto) 0.0, Baso # (Auto) 0.0 12/25/21 06:45: Sodium 141, Potassium 4.4, Chloride 102, Carbon Dioxide 30, Anion Gap 13.4, BUN 15, Creatinine 0.70, Estimated Creat Clear 119, Estimated GFR 89, Est GFR ( Amer) 107, Glucose 105 H, Calcium 8.7, Magnesium 2.2 I & O for Last 24 hours: Intake & Output 12/22/21 12/23/21 12/24/21 12/25/21 23:59 23:59 23:59 23:59 Intake Total 901 / 901 Output Total 400 / 550 1050 / 1050 Balance -400 / -550 -149 / -149 Weight 76.929 kg 78.199 kg Constitutional Constitutional: no acute distress, obese and cooperative *Routine HEENT Exam Head: Present normocephalic and atraumatic Eye: Present EOMI and PERRL ENT: Present mucous membranes moist *Routine Neck Exam Neck: Present supple, full ROM and trachea midline; Absent JVD, lymphadenopathy or thyromegaly *Routine Respiratory Exam Respiratory: Present CTA bilaterally, normal respiratory effort and symmetric chest movement; Absent respiratory distress *Routine Cardiovascular Exam Cardiovascular: Present RRR, Normal S1 and Normal S2; Absent murmur *Routine Abdominal Exam Abdominal: Present soft, normoactive bowel sounds and surgical scars *Routine Extremities Exam Extremities: Present full ROM, pulses intact and normal capillary refill; Absent cyanosis *Routine Skin Exam Skin: Present intact and warm; Absent rash *Routine Neurological
[2021-12-25 15:43] VITALS: BP 142/86; PULSE 95; RESP 18; TEMP 36.9; O2SAT 96
--- NOTE | 2021-12-25 18:15 | PC.NURSE ---
Patient complained of abdominal pain throughout shift. IV pain and po pain medication given. Urine strained but no kidney stone found. VS stable and pt remained alert and oriented. Patient given zofran after one episode of emesis.
[2021-12-25 20:00] VITALS: BP 101/59; PULSE 79; RESP 18; TEMP 36.8; O2SAT 96
[2021-12-26 04:00] VITALS: BP 119/71; PULSE 76; RESP 20; TEMP 36.7; O2SAT 97
--- NOTE | 2021-12-26 04:50 | PC.NURSE ---
pt has rested well this shift, has complained of pain twice and was treated per MAR, has had no complaints of nausea, no vomiting this shift, ambulating to bathroom, strainer in bathroom with hat for measuring, no stones noted in urine, pt does state that she is feeling somewhat better
[2021-12-26 04:59] VITALS: BMI 29.9
[2021-12-26 07:49] VITALS: BP 123/73; PULSE 78; RESP 16; TEMP 36.6; O2SAT 97
[2021-12-26 08:22] LABS: Basophils % 0.3 % (0.1-2.0); Eosinophils # 0.1 K/mm3 (0.0-0.4); Eosinophils % 1.5 % (0.1-12.0); Hematocrit 30.1 % (37.0-47.0); Hemoglobin 9.9 g/dL (12.2-16.2); Lymphocytes # 1.4 K/mm3 (0.7-4.5); Lymphocytes % 26.7 % (10-50); Mean Corpuscular HGB Conc 32.7 g/dL (31.8-35.4); Mean Corpuscular Hemoglobin 26.8 pg (27.0-31.2); Mean Corpuscular Volume 81.9 fl (81-99); Mean Platelet Volume 8.8 fl (7.4-10.4); Monocytes # 0.3 K/mm3 (0.1-1.0); Monocytes % 5.2 % (1.7-9.3); Neutrophils # 3.3 K/mm3 (1.8-7.8); Neutrophils % 66.2 % (37.0-80.0); Platelet Count 231 K/mm3 (142-424); Red Blood Count 3.68 M/mm3 (4.20-5.40); Red Cell Distribution Width 15.2 % (11.5-17.5)
[2021-12-26 08:30] LABS: Chloride 107 mmol/L (98-107); Potassium 3.8 mmoL/L (3.5-5.1); Sodium 140 mmol/L (136-145)
[2021-12-26 08:33] LABS: Anion Gap 9.8 mEq/L (5-15); Blood Urea Nitrogen 16 mg/dl (7-17); Carbon Dioxide 27 mmol/L (22.0-30.0); Creatinine Clearance Estimated 169 mL/min (50-200); Estimated Glomerular Filt Rate 131 ml/min (>60); GFR (African American) 158 ML/MIN (>60)
[2021-12-26 08:34] LABS: Calcium 8.1 mg/dl (8.4-10.2); Glucose 87 mg/dl (74-100)
[2021-12-26 09:26] VITALS: BMI 29.9
--- NOTE | 2021-12-26 11:49 | EXP.PN ---
Subjective *Date: 12/26/21 *Time: 11:49 Interval history: The patient reports no acute events overnight. She is inquiring about being able to eat. Amy DREW reports that she remains afebrile with stable vital signs and saturating appropriately on room air. She is tolerating her antibiotic therapy with no adverse events. Her morning labs identify resolved leukocytosis and normal BMP. Exam Data for Last 24 hours Vital signs and Labs for Last 24 Hours: Temp Pulse Resp BP Pulse Ox 97.9 F 78 16 123/73 97 12/26/21 07:49 12/26/21 07:49 12/26/21 07:49 12/26/21 07:49 12/26/21 07:49 Laboratory Results - last 24 hr 12/26/21 07:10: WBC 5.0 D, RBC 3.68 L, Hgb 9.9 L, Hct 30.1 L, MCV 81.9, MCH 26.8 L, MCHC 32.7, RDW 15.2, Plt Count 231, MPV 8.8, Neut % (Auto) 66.2, Lymph % (Auto) 26.7, [place] % (Auto) 5.2, Eos % (Auto) 1.5, Baso % (Auto) 0.3, Neut # (Auto) 3.3, Lymph # (Auto) 1.4, [place] # (Auto) 0.3, Eos # (Auto) 0.1, Baso # (Auto) 0.0 12/26/21 07:10: Sodium 140, Potassium 3.8, Chloride 107, Carbon Dioxide 27, Anion Gap 9.8, BUN 16, Creatinine 0.50 L D, Estimated Creat Clear 169, Estimated GFR 131, Est GFR ( Amer) 158 D, Glucose 87, Calcium 8.1 L I & O for Last 24 hours: Intake & Output 12/23/21 12/24/21 12/25/21 12/26/21 23:59 23:59 23:59 23:59 Intake Total 1829 / 1829 1123 / 1123 Output Total 400 / 550 1350 / 1350 400 / 400 Balance -400 / -550 479 / 479 723 / 723 Weight 76.929 kg 78.199 kg 79.469 kg Microbiology Reports for the Last 24 Hours: Microbiology 12/24/21 15:20 Urine,Clean Catch Urine Culture - Preliminary NO GROWTH AFTER 24 HOURS Constitutional Constitutional: no acute distress, obese and cooperative *Routine HEENT Exam Head: Present normocephalic and atraumatic Eye: Present EOMI and PERRL ENT: Present mucous membranes moist *Routine Neck Exam Neck: Present supple, full ROM and trachea midline; Absent JVD, lymphadenopathy or thyromegaly *Routine Respiratory Exam Respiratory: Present CTA bilaterally, normal respiratory effort and symmetric chest movement; Absent respiratory distress *Routine Cardiovascular Exam Cardiovascular: Present RRR, Normal S1 and Normal S2; Absent murmur *Routine Abdominal Exam Abdominal: Present soft, normoactive bowel sounds and surgical scars *Routine Extremities Exam Extremities: Present full ROM, pulses intact and normal capillary refill; Absent cyanosis *Routine Skin Exam Skin: Present intact and warm; Absent rash *Routine Neurological Exam Neurological: Present alert, oriented X3, moving all extremities, vision grossly intact, hearing grossly intact and normal speech; Absent sensory deficit or motor deficit Routine Psychiatric Exam Psychiatric: Present normal affect, normal thought process, cooperative, good insight and good judgment Assessment and Plan *Assessment and plan (1) Pyelonephritis of left kidney: Status: Acute Category: Medical Code(s): N12 - Tubulo-interstitial nephritis, not specified as acute or chronic (2) Ureteral obstruction, left: Status: Acute Category: Medical Code(s): N13.5 - Crossing vessel and stricture of ureter without hydronephrosis (3) Kidney stones: Status: Acute Category: Medical Code(s): N20.0 - Calculus of kidney (4) CAP (community acquired pneumonia): Status: Acute Category: Medical Code(s): J18.9 - Pneumonia, unspecified organism (5) Esophagitis: Status: Acute Category: Medical Code(s): K20.90 - Esophagitis, unspecified without bleeding Plan Left pyelonephritis-5 mm left ureteral stone with identified hydronephrosis, IV fluid resuscitation, alpha-satinder therapy, IV Rocephin, trend labs and inflammatory markers including urine culture Left ureteral obstruction-5 mm ureteral stone, alpha-satinder therapy, IV fluid resuscitation, outpatient urology evaluation(urology services are not availab
[2021-12-26 15:23] LABS: Occult Blood,Stool Negative (Negative)
[2021-12-26 16:00] VITALS: BP 128/74; PULSE 79; RESP 18; TEMP 37.1; O2SAT 96
--- NOTE | 2021-12-26 16:10 | PC.NURSE ---
Patient able to tolerate clear liquids, diet advanced to full liquids. VS stable and patient remained on room air. Stool sample collected and sent. negative for occult blood. Pain controlled with hydrocodone and toradol. Patient able to move around more today. No other changes noted.
[2021-12-26 20:00] VITALS: BP 128/74; PULSE 72; RESP 16; TEMP 37; O2SAT 98
[2021-12-27 04:00] VITALS: BP 146/83; PULSE 78; RESP 17; TEMP 36.6; O2SAT 96
[2021-12-27 05:00] VITALS: BMI 30.6
--- NOTE | 2021-12-27 06:27 | PC.NURSE ---
pt rested well t/o most of shift, has complained of pain 2 times this shift and was treated per APR, complained of nausea one time and was treated per APR, ambulating independently in room, urine continues to be strained, no stones found, remains on room air
[2021-12-27 08:00] VITALS: BP 135/82; PULSE 60; RESP 14; TEMP 36.6; O2SAT 99
--- NOTE | 2021-12-27 09:16 | EXP.DC.SUM ---
General Admission date:: 12/24/21 Discharge date: 12/27/21 HPI HPI HPI: I saw and examined this patient in the ED for admission to the MED/SURG unit. This 51 y.o. female presented to the emergency department for evaluation of nausea and vomiting. She was diagnosed with COVID last or Monday.? During her stay in the ED she experienced episodes of intractable green and brown vomiting.? Patient has not passed flatus or had a bowel movement since onset of vomiting.? Patient states that her abdomen feels uncomfortable however not painful.? Denies dysuria, chest pain.? No other acute complaints at this time. Patient has past medical history of hypertension, previous bowel obstruction status postsurgical intervention,and recently diagnosed COVID. Evaluation in the ED revealed a positive CT scan for a 5 mm left ureteral stone with mild hydronephrosis and hydroureter.? Findings were suspicious for right lower lobe pneumonia with groundglass opacities.? Patient is COVID-positive.? There is a small incidental hiatal hernia with thickening of undetermined etiology.? Some scattered air-fluid levels in the bowel however no transition point, no edema, no dilation.? Patient is COVID-positive.? Ceftriaxone was administered in the ED.? Upon repeat evaluation patient had persistent vomiting for which Phenergan was administered.?Treatment plan will be continued on the unit. ? Hospital Course Hospital Course Hospital Course: The patient was admitted to the medical floor with urine culture required. She was started on IV antibiotic therapy and her imaging identified concerns with pneumonia. Her urine culture identified no growth to date. CT of abdomen identified pyelonephritis on the left with left ureteral obstruction hydronephrosis and kidney stones on both sides. She tolerated her IV fluid resuscitation, alpha-satinder and antibiotic therapy with improved laboratory results. Her inflammatory markers improved as well. The patient identified improvement and inquired about discharge home. We recommended discharge home on treatment for pneumonia, kidney stones and UTI. We have recommended follow-up with her family doctor in 1 week and a urologist as scheduled. I spent 35 minutes in [id number] time with the patient and members of the MDR team concerning the discharge process. We discussed the admitting diagnoses and the hospital course. We discussed identified improvement and the patient's desire to be discharged. We reviewed inpatient studies and imaging. The patient voiced understanding on the importance of follow-up with her primary care provider and urologist. The patient plans to be compliant with the medication regimen prescribed. She understands that she can return to the emergency department with any sudden changes or concerns.? Exam Data for Last 24 hours Vital signs and Labs for Last 24 Hours: Temp Pulse Resp BP Pulse Ox 97.8 F 60 14 135/82 99 12/27/21 08:00 12/27/21 08:00 12/27/21 08:00 12/27/21 08:00 12/27/21 08:00 Laboratory Results - last 24 hr 12/24/21 14:22: Stool Occult Blood Negative I & O for Last 24 hours: Intake & Output 12/24/21 12/25/21 12/26/21 12/27/21 23:59 23:59 23:59 23:59 Intake Total 1829 / 1829 4084 / 4084 1629 / 1629 Output Total 400 / 550 1350 / 1350 1350 / 1350 800 / 800 Balance -400 / -550 479 / 479 2734 / 2734 829 / 829 Weight 76.929 kg 78.199 kg 79.469 kg 81.363 kg Microbiology Reports for the Last 24 Hours: Microbiology 12/24/21 15:20 Urine,Clean Catch Urine Culture - Final NO GROWTH AFTER 48 HOURS Constitutional Constitutional: no acute distress, obese and cooperative *Routine HEENT Exam Head: Present normocephalic and atraumatic Eye: Present EOMI and PERRL ENT: Present mucous membranes moist *Routine Neck Exam Neck: Present supple, full ROM and trachea midline; Absent JVD, lymphadenopathy or thyromegaly *Routine Respiratory Exam Respirator
[2021-12-27 09:58] VITALS: PULSE 69; RESP 18
--- NOTE | 2021-12-27 10:13 | P.PN_ITS ---
Subjective *Date: 12/27/21 *Time: 10:13 Medical Exam Vital signs and Labs for Last 24 Hours: Vital Signs Temp Pulse Pulse Resp BP Pulse Ox 12/27/21 09:58 69 18 12/27/21 08:00 97.8 F 60 14 135/82 99 12/27/21 04:00 97.9 F 78 17 146/83 H 96 12/26/21 20:00 98 12/26/21 20:00 98.6 F 72 16 128/74 98 12/26/21 16:00 98.8 F 79 18 128/74 96 Intake and Output 12/26/21 12/27/21 12/27/21 23:59 07:59 15:59 Intake Total 2001 / 4084 1509 / 1629 120 / 1629 Output Total 350 / 1350 800 / 800 Balance 1651 / 2734 709 / 829 120 / 829 Intake: Intake, Oral Amount 720 / 1680 120 / 120 Intake, Total IV Amount 1281 / 2404 1509 / 1509 0.9 % Sodium Chloride 1,000 ml 1281 / 2354 1459 / 1459 @ 125 mls/hr IV .Q8H [facility] Rx#: [id number] Ceftriaxone Sodium 1 gm In 0.9 50 / 50 % Sodium Chloride 50 ml @ 100 mls/hr IV Q24H [facility] Rx#:[id number] Output: Output, Urine Amount 350 / 1350 800 / 800 Other: Weight 81.363 kg Patient Weight 12/27/21 23:59 Weight 81.363 kg Laboratory Results - last 24 hr 12/24/21 14:22: Stool Occult Blood Negative I & O for Labs for Last 24 Hours: Intake & Output 12/24/21 12/25/21 12/26/21 12/27/21 23:59 23:59 23:59 23:59 Intake Total 1829 / 1829 4084 / 4084 1629 / 1629 Output Total 400 / 550 1350 / 1350 1350 / 1350 800 / 800 Balance -400 / -550 479 / 479 2734 / 2734 829 / 829 Weight 76.929 kg 78.199 kg 79.469 kg 81.363 kg Microbiology Reports for the Last 24 Hours: Microbiology 12/24/21 15:20 Urine,Clean Catch Urine Culture - Final NO GROWTH AFTER 48 HOURS The patient's infection will respond to the chosen ABx?: Yes (URINE CULTURE = NO GROWTH, SPUTUM PENDING.) Is the patient receiving the right drug, dose, and route?: Yes Could a more targeted ABx be ordered?: No
--- NOTE | 2021-12-27 11:09 | PC.NURSE ---
Pt awaiting ride at this time.
--- NOTE | 2021-12-28 13:46 | CARE MANAGER ---
Attempted post-discharge phone interview and no answer.
== END 2021-12-27 11:32 | disposition home or self-care (01) | DRG 693 ==
LOC: ER 14:13 → 2ND 20:26
PROVIDERS: Nurse Practitioner Family; Admitting Provider Family Medicine; Emergency Provider Emergency Medicine; PCP Family Medicine; Visit Provider Family Medicine
DX: N20.0 Calculus of kidney (principal); J18.9 Pneumonia, unspecified organism; U07.1 COVID-19; N12 Tubulo-interstitial nephritis, not specified as acute or chronic; N13.5 Crossing vessel and stricture of ureter without hydronephrosis; K20.90 Esophagitis, unspecified without bleeding
CPT/HCPCS: 36415; 74178; 80048; 80053; 81001; 82272; 83605; 83690; 83735; 85007; 85025; 87070; 87086; 87205; 99285; C9803; G0328; J0696; J2405; Q9967; U0003; U0005

== ENCOUNTER 2022-01-24 20:39 | Emergency (ER) | payer BC, SELFPAY ==
[2022-01-24 20:40] VITALS: BP 167/105; PULSE 83; RESP 18; TEMP 36.4; O2SAT 97; BMI 29.2
[2022-01-24 21:48] LABS: Microscopic, Urine URINE MICROSCOPIC (MICROSCOPIC)
[2022-01-24 21:49] LABS: Appearance,Urine CLEAR (Clear); Bilirubin,Urine Negative (Negative); Blood, Urine 3+ (Negative); Color,Urine YELLOW (Yellow); Glucose,Urine (UA) Negative (Negative); Ketones,Urine Negative (Negative); Leukocyte Esterase,Urine 1+ (Negative); Nitrate,Urine Negative (Negative); PH,Urine 6.5 (5.0-8.5); Protein,Urine Negative (Negative); Specific Gravity, Urine 1.015 (1.005-1.030); Urobilinogen,Urine 0.2 EU/dl (0.2)
[2022-01-24 22:11] LABS: Bacteria,Urine Trace /lpf; Squamous Epithelial Cell,Urine Occasional #/hpf (0-5)
--- NOTE | 2022-01-24 22:11 | HMH.EDABDPAI ---
Discharge Plan Disposition Patient Disposition: Home, Self-Care Chief Complaint: Abdominal Pain Prescriptions Prescriptions: No Action clonazepam [Klonopin] 1 mg tablet 1 mg PO BID Qty: 60 2RF Rx Instructions: sparingly when able ondansetron 4 mg tablet,disintegrating 4 mg PO Label Comments: DISSOLVE 1 TABLET ON TONGUE EVERY 6 HOURS NEEDED FOR NAUSEA FOR UP TO 30 DAYS simvastatin 40 mg tablet 40 mg PO carisoprodol [Soma] 350 mg tablet 350 mg PO BID PRN (Reason: muscle pain) Qty: 60 1RF Rx Instructions: use sparingly omeprazole 40 mg capsule,delayed release(DR/EC) 40 mg PO DAILY Label Comments: TAKE ONE CAPSULE BY MOUTH DAILY tamsulosin 0.4 mg Capsule 0.4 mg PO HS Qty: 30 0RF Referrals Follow up/Referrals: Rashawn De Jesus MD [Primary Care Provider] - See instructions Clinical Impressions Clinical Impression: Renal colic on left side Instructions Patient Instructions: Kidney Stones -- Adult Discharge ED Provider: Mason Hampton Abdominal Pain HPI General Chief Complaint: Abdominal Pain Stated Complaint: possible kidney stone, left side abd pain Time Seen by Provider: 01/24/22 22:11 Mode of Arrival: Ambulatory Source of Information: Patient and Medical Record Limitations: No Limitations Description of Symptoms (Recalled from ER Triage Doc. by RN): pt c/o lt flank pain and has a known 5mm stone. pt had litho on monday and stent place on History of Present Illness HPI narrative: pt with known kidney stone and has seen urology and had litho and has stent - has increased pain and has pending appt with urology this week - saw pcp today complaint: flank pain Onset (ago): day(s) Consistency: intermittent Location: L flank Severity: severe Context: recent surgery/procedure Associated symptoms: denies other symptoms Related Data Home Medications Medication Instructions Recorded Confirmed omeprazole 40 mg capsule,delayed 40 mg PO DAILY GERD 12/25/21 01/24/22 release ondansetron 4 mg disintegrating 4 mg PO 01/24/22 01/24/22 tablet simvastatin 40 mg tablet 40 mg PO 01/24/22 01/24/22 Previous Rx's Medication Instructions Recorded carisoprodol 350 mg tablet (Soma) 350 mg PO BID PRN muscle pain #60 11/11/21 tabs clonazepam 1 mg tablet (Klonopin) 1 mg PO BID #60 tabs 12/21/21 tamsulosin 0.4 mg capsule 0.4 mg PO HS #30 caps 12/27/21 Allergies Allergy/AdvReac Type Severity Reaction Status Date / Time No Known Allergies Allergy Verified 01/24/22 11:21 [facility] Medical History History of gastroesophageal reflux (GERD) Hyperlipidemia Hypertension Surgical History H/O section History of hysterectomy S/P cholecystectomy Family History Other Cancer Family history of diabetes mellitus type II Family history of hypertension Social History Smoking Status: Never smoker alcohol intake: never current occupational status: employed Travel in the last 8 weeks: None household members: significant other housing: house ROS Obtained: Yes All systems reviewed & no additional complaints except as documented Physical Exam General General appearance: alert Head Head exam: normocephalic Eye Eye exam: Present PERRL and EOMI ENT ENT exam: Present mucous membranes moist Neck Neck exam: Present trachea midline Respiratory Respiratory exam: Absent respiratory distress Cardiovascular Cardiovascular exam: Present regular rate Abdominal Exam Abdominal exam: Present soft; Absent tenderness Extremities Exam Extremities exam: Present full ROM Back Exam Back exam: Present CVA tenderness (L) Neurological Exam Neurological exam: Present alert, oriented X3 and CN II-XII intact Skin Skin exam: P
[2022-01-24 22:36] VITALS: BP 147/87; PULSE 81; RESP 18; TEMP 36.4; O2SAT 97
== END 2022-01-24 22:37 | disposition home or self-care (01) ==
PROVIDERS: Emergency Provider Emergency Medicine; PCP Family Medicine
DX: N23 Unspecified renal colic (principal); Z79.899 Other long term (current) drug therapy; I10 Essential (primary) hypertension; E78.5 Hyperlipidemia, unspecified; K21.9 Gastro-esophageal reflux disease without esophagitis
CPT/HCPCS: 81001; 87086; 96365; 96375; 96376; 99284; J2405

== ENCOUNTER → 2022-05-03 13:01 | Outpatient (CLI) | payer BC, SELFPAY ==
--- NOTE | 2022-05-03 13:01 | MM_ITS ---
PROCEDURE INFORMATION: Exam: Bilateral Screening 3D Mammography Exam date and time: 05/03/2022 1:15 PM Age: 51 years old Clinical indication: Screening examination. Maternal aunts had breast cancer. TECHNIQUE: Imaging protocol: Bilateral Screening tomosynthesis and 2D mammography including computer-aided detection (CAD) when performed. COMPARISON: No relevant prior studies available.If prior mammograms are provided, I am happy to add an addendum. FINDINGS: MAMMOGRAPHY: Breast composition: The breasts are heterogeneously dense, which may obscure small masses. Mass: None. Architectural distortion: None. Calcifications: No suspicious calcifications. Asymmetric density: Questionable broad asymmetry versus asymmetrically dense breast tissue in the right upper breast, anterior 3rd, MLO view. Skin thickening: None. Axillary adenopathy: None. IMPRESSION: Comparison to prior mammograms will be most helpful. These are not provided in 2 weeks, patient will be recalled for right diagnostic spot compression in the MLO and full field right lateral as well as right sonography for further evaluation questionable right asymmetry. ASSESSMENT: BI-RADS Category 0: Incomplete- Need Additional Imaging Evaluation and/or Prior Mammograms for Comparison
== END ==
PROVIDERS: PCP Family Medicine; Visit Provider Family Medicine
DX: Z12.31 Encounter for screening mammogram for malignant neoplasm of breast (principal)
CPT/HCPCS: 77063; 77067

== ENCOUNTER 2022-05-16 17:48 | Emergency (ER) | payer BC, SELFPAY ==
[2022-05-16 18:00] VITALS: BP 159/93; PULSE 85; RESP 16; TEMP 36.7; O2SAT 100; BMI 28.3
[2022-05-16 18:18] LABS: Microscopic, Urine URINE MICROSCOPIC (MICROSCOPIC)
[2022-05-16 18:22] LABS: Appearance,Urine CLEAR (Clear); Bilirubin,Urine Negative (Negative); Blood, Urine Negative (Negative); Color,Urine YELLOW (Yellow); Glucose,Urine (UA) Negative (Negative); Ketones,Urine Negative (Negative); Leukocyte Esterase,Urine Negative (Negative); Nitrate,Urine Negative (Negative); Protein,Urine Negative (Negative); Urobilinogen,Urine 0.2 EU/dl (0.2)
[2022-05-16 18:24] LABS: Basophils # 0.1 K/mm3 (0-0.2); Basophils % 1.4 % (0.1-2.0); Eosinophils # 0.2 K/mm3 (0.0-0.4); Eosinophils % 2.9 % (0.1-12.0); Hematocrit 39.8 % (37.0-47.0); Hemoglobin 13.3 g/dL (12.2-16.2); Lymphocytes % 37.8 % (10-50); Mean Corpuscular HGB Conc 33.4 g/dL (31.8-35.4); Mean Corpuscular Hemoglobin 26.4 pg (27.0-31.2); Mean Corpuscular Volume 79.2 fl (81-99); Mean Platelet Volume 8.4 fl (7.4-10.4); Monocytes # 0.3 K/mm3 (0.1-1.0); Monocytes % 5.8 % (1.7-9.3); Neutrophils # 2.8 K/mm3 (1.8-7.8); Neutrophils % 52.1 % (37.0-80.0); Platelet Count 288 K/mm3 (142-424); Red Blood Count 5.02 M/mm3 (4.20-5.40); Red Cell Distribution Width 15.4 % (11.5-17.5); White Blood Count 5.4 K/mm3 (4.8-10.8)
[2022-05-16 18:32] LABS: Chloride 102 mmol/L (98-107)
[2022-05-16 18:33] LABS: Potassium 3.8 mmoL/L (3.5-5.1); Sodium 138 mmol/L (136-145)
[2022-05-16 18:35] LABS: Alanine Aminotransferase 19 U/L (12-78); Alkaline Phosphatase 93 U/L (38-126); Anion Gap 11.8 mEq/L (5-15); Aspartate Amino Transferase 28 U/L (14-36); Bilirubin,Total 0.5 mg/dl (0.2-1.3); Blood Urea Nitrogen 11 mg/dl (7-17); Carbon Dioxide 28 mmol/L (22.0-30.0); Creatinine Clearance Estimated 131 mL/min (50-200); Estimated Glomerular Filt Rate 105 ml/min (>60); GFR (African American) 128 ML/MIN (>60); Glucose 93 mg/dl (74-100); Lipase 186 U/L (23-300)
[2022-05-16 18:36] LABS: Squamous Epithelial Cell,Urine Occasional #/hpf (0-5)
[2022-05-16 18:36] LABS: Albumin Level 4.7 g/dl (3.5-5.0); Albumin/Globulin Ratio 1.3 (1.1-1.8); Calcium 8.8 mg/dl (8.4-10.2); Globulin 3.7 g/dL (1.3-3.2); Total Protein,Serum 8.4 g/dl (6.3-8.2)
--- NOTE | 2022-05-16 19:23 | CT_ITS ---
PROCEDURE INFORMATION: Exam: CT Abdomen And Pelvis With Contrast Exam date and time: 05/16/2022 7:35 PM Age: 52 years old Clinical indication: Abdominal pain; Generalized; Additional info: Abd pain TECHNIQUE: Imaging protocol: Computed tomography of the abdomen and pelvis with contrast. Radiation optimization: All CT scans at this facility use at least one of these dose optimization techniques: automated exposure control; mA and/or kV adjustment per patient size (includes targeted exams where dose is matched to clinical indication); or iterative reconstruction. Contrast material: ISOVUE; Contrast volume: 75 ml; Contrast route: IV; REPORTING DATA: Count of CT and Cardiac NM exams in prior 12 months: This patient has received [address] and 0 known cardiac nuclear medicine studies in the 12 months prior to the current study. COMPARISON: CT ABDOMEN PELVIS WO/W CON 24/12/2021 15:22 FINDINGS: Liver: Normal. No mass. Gallbladder and bile ducts: Gallbladder is absent. Pancreas: Normal. No ductal dilation. Spleen: Normal. No splenomegaly. Adrenal glands: Normal. No mass. Kidneys and ureters: Unchanged left renal hyperdense cyst. Nonobstructing right renal calculi. Stomach and bowel: Unremarkable. No obstruction. No mucosal thickening. Appendix: Appendix is absent. Intraperitoneal space: Unremarkable. No free air. No significant fluid collection. Vasculature: Unremarkable. No abdominal aortic aneurysm. Lymph nodes: Unremarkable. No enlarged lymph nodes. Urinary bladder: Unremarkable as visualized. Reproductive: Status post hysterectomy. Bones/joints: Unremarkable. No acute fracture. Soft tissues: There is a healed anterior abdominal wall incision. Tiny fat containing umbilical hernia. Other findings: Stigmata of old granulomatous disease. IMPRESSION: 1. No acute findings. 2. Nonobstructing right renal calculi.
--- NOTE | 2022-05-16 19:45 | PC.NURSE ---
Pt call out in complaints of pain and wanting more pain medication, medicated at 1912, informed pt to give the medication time to work.
--- NOTE | 2022-05-16 20:14 | HMH.EDGENADL ---
Discharge Plan Disposition Patient Disposition: Home, Self-Care Condition: Good Chief Complaint: Abdominal Pain Prescriptions Prescriptions: No Action ondansetron 4 mg tablet,disintegrating 4 mg PO Label Comments: DISSOLVE 1 TABLET ON TONGUE EVERY 6 HOURS NEEDED FOR NAUSEA FOR UP TO 30 DAYS simvastatin 40 mg tablet 40 mg PO oxycodone 10 mg tablet 10 mg PO QID PRN (Reason: pain) Qty: 10 0RF omeprazole 40 mg capsule,delayed release(DR/EC) See Rx Instructions .ROUTE .COMPLEX Qty: 90 0RF Dose Instruction: TAKE ONE CAPSULE BY MOUTH DAILY Rx Instructions: TAKE ONE CAPSULE BY MOUTH DAILY clonazepam [Klonopin] 1 mg tablet 1 mg PO BID Qty: 60 2RF Rx Instructions: sparingly when able tamsulosin 0.4 mg capsule See Rx Instructions .ROUTE .COMPLEX Qty: 30 2RF Dose Instruction: TAKE 1 CAPSULE BY MOUTH EVERYDAY AT BEDTIME Rx Instructions: TAKE 1 CAPSULE BY MOUTH EVERYDAY AT BEDTIME carisoprodol [Soma] 350 mg tablet 350 mg PO HS PRN (Reason: muscle pain) Qty: 30 0RF Referrals Follow up/Referrals: Rashawn De Jesus MD [Primary Care Provider] - See instructions Activity Restrictions/Add. Instructions Additional Instructions/Restrictions: Motrin/Tylenol as needed. Stay well-hydrated. Follow-up PCP in 1 to 2 days. Clinical Impressions Clinical Impression: Abdominal pain Instructions Patient Instructions: DI for Acute Abdominal Pain Discharge ED Provider: Brayan Amezcua General Adult HPI General Chief complaint: Abdominal Pain Stated complaint: Stomach tightness, left side abdominal pain/back Time Seen by Provider: 05/16/22 18:42 Mode of Arrival: Ambulatory Source of Information: Patient Limitations: No Limitations Description of Symptoms (Recalled from ER Triage Doc. by RN): Pt c/o generalized abd, left flank, and back pain. Reports worsening over weeks, with pmhx renal calculi History of Present Illness HPI narrative: 52yo F presents to the ER secondary to generalized abdominal pain, back pain. Reports is been ongoing for weeks and slowly worsening. Reports decreased p.o. intake. Denies diarrhea. Reports multiple abdominal pathologies and surgeries in the past. Nothing improves her symptoms. Related Data Home Medications Medication Instructions Recorded Confirmed ondansetron 4 mg disintegrating 4 mg PO 01/24/22 01/28/22 tablet simvastatin 40 mg tablet 40 mg PO 01/24/22 01/28/22 Previous Rx's Medication Instructions Recorded oxycodone 10 mg tablet 10 mg PO QID PRN pain #10 tabs 01/25/22 omeprazole 40 mg capsule,delayed See Rx Instructions .Route 02/28/22 release .COMPLEX #90 caps clonazepam 1 mg tablet (Klonopin) 1 mg PO BID #60 tabs 03/22/22 tamsulosin 0.4 mg capsule See Rx Instructions .Route 04/28/22 .COMPLEX #30 caps carisoprodol 350 mg tablet (Soma) 350 mg PO HS PRN muscle pain #30 05/06/22 tabs Allergies Allergy/AdvReac Type Severity Reaction Status Date / Time No Known Allergies Allergy Verified 01/28/22 13:59 [facility] Disclaimer: The information contained in this section may have been updated after the patient was seen, as this information can be updated by other users. Medical History History of gastroesophageal reflux (GERD) Hyperlipidemia Hypertension Surgical History H/O section History of hysterectomy S/P cholecystectomy Family History Other Cancer Family history of diabetes mellitus type II Family history of hypertension Social History Smoking Status: Unknown if ever smoked alcohol intake: never current occupational status: employed Travel in the last 8 weeks: None household members: significant other housing: house ROS Obtained: Yes Systems re
[2022-05-16 20:39] VITALS: BP 155/90; PULSE 82; RESP 18; TEMP 36.6; O2SAT 99
== END 2022-05-16 20:43 | disposition home or self-care (01) ==
PROVIDERS: Emergency Provider Family Medicine; PCP Family Medicine
DX: R10.84 Generalized abdominal pain (principal); M54.59 Other low back pain
CPT/HCPCS: 74177; 80053; 81001; 83690; 85025; 96360; 96374; 96375; 96376; 99284; 99285; J2405; Q9967

== ENCOUNTER → 2022-05-30 14:32 | Outpatient (CLI) | payer BC, SELFPAY ==
--- NOTE | 2022-05-30 14:32 | MM_ITS ---
PROCEDURE INFORMATION: Exam: US Right Breast, Complete MG Right Diagnostic Breast Tomosynthesis Exam date and time: 05/30/2022 2:31 PM Age: 52 years old Clinical indication: Recall on the basis of screening mammogram 05/03/2022 for further evaluation of questionable asymmetry in the upper right breast. TECHNIQUE: Imaging protocol: Complete ultrasound of all four quadrants of the right breast and the retroareolar regions, including ultrasound of the axilla when performed. Right Diagnostic tomosynthesis and 2D mammography including computer-aided detection (CAD) when performed. Unilateral or bilateral exam. COMPARISON: MG MM DIG SCREENING MAMM BI W/CAD 05/03/2022 1:15 PM FINDINGS: MAMMOGRAPHY: Spot compression shows more patchy broad asymmetry in the upper breast with interspersed fat and no suspicious mass. ULTRASOUND: Right sonography, all 4 quadrants, retroareolar and axilla. At 1 o'clock 2 cm from the nipple, mildly complicated avascular cyst measuring 0.3 x 0.3 x 0.3 cm. No other sonographic findings demonstrated. Sonographically unremarkable axillary lymph node. IMPRESSION: Probably benign 0.3 cm complicated cyst at 1 o'clock and probably benign asymmetry in the upper right breast with no a sonographic correlate. Clinical correlation to this region is advised, if negative clinically, right diagnostic mammography and targeted right sonography is recommended. ASSESSMENT: BI-RADS Category 3: Probably benign
== END ==
PROVIDERS: PCP Family Medicine; Visit Provider Family Medicine
DX: N64.59 Other signs and symptoms in breast (principal); N64.89 Other specified disorders of breast; R92.8 Other abnormal and inconclusive findings on diagnostic imaging of breast
CPT/HCPCS: 76641; 77061; 77065; G0279

== ENCOUNTER 2022-08-07 14:18 | Emergency (ER) | payer BC, SELFPAY ==
[2022-08-07 14:19] VITALS: BP 203/132; PULSE 74; RESP 16; TEMP 36.7; O2SAT 99; BMI 29.2
--- NOTE | 2022-08-07 14:22 | HMH.EDGENADL ---
Discharge Plan Disposition Patient Disposition: Home, Self-Care Prescriptions Prescriptions: New ibuprofen 800 mg tablet 800 mg PO TID PRN (Reason: pain) 7 Days Qty: 20 0RF hydrocodone-acetaminophen 5-325 mg tablet 1 tab PO Q6H PRN (Reason: pain) 3 Days Qty: 12 0RF ondansetron 4 mg tablet,disintegrating 4 mg PO Q6H PRN (Reason: nausea and vomiting) 5 Days Qty: 20 0RF No Action ondansetron 4 mg tablet,disintegrating 4 mg PO Label Comments: DISSOLVE 1 TABLET ON TONGUE EVERY 6 HOURS NEEDED FOR NAUSEA FOR UP TO 30 DAYS simvastatin 40 mg tablet 40 mg PO oxycodone 5 mg tablet 5 mg PO DAILY PRN (Reason: pain) Qty: 12 0RF bupropion HCl [Wellbutrin SR] 150 mg tablet sustained-release 12 hr 150 mg PO BID Qty: 180 3RF metoprolol succinate [Toprol XL] 100 mg tablet extended release 24 hr 100 mg PO DAILY Qty: 90 3RF tamsulosin 0.4 mg capsule See Rx Instructions .ROUTE .COMPLEX Qty: 30 2RF Dose Instruction: TAKE 1 CAPSULE BY MOUTH EVERYDAY AT BEDTIME Rx Instructions: TAKE 1 CAPSULE BY MOUTH EVERYDAY AT BEDTIME dicyclomine 20 mg tablet See Rx Instructions .ROUTE .COMPLEX Qty: 180 1RF Dose Instruction: TAKE 1 TABLET BY MOUTH TWICE A DAY NEEDED FOR ABDOMINAL PAIN Rx Instructions: TAKE 1 TABLET BY MOUTH TWICE A DAY NEEDED FOR ABDOMINAL PAIN clonazepam [Klonopin] 1 mg tablet 1 mg PO DAILY PRN (Reason: anxiety) Qty: 30 0RF Rx Instructions: sparingly when able omeprazole 40 mg capsule,delayed release(DR/EC) See Rx Instructions .ROUTE .COMPLEX Qty: 90 0RF Dose Instruction: TAKE ONE CAPSULE BY MOUTH DAILY Rx Instructions: TAKE ONE CAPSULE BY MOUTH DAILY carisoprodol [Soma] 350 mg tablet 350 mg PO BID PRN (Reason: muscle pain) Qty: 30 0RF Referrals Follow up/Referrals: Rashawn De Jesus MD [Primary Care Provider] - See instructions Activity Restrictions/Add. Instructions Additional Instructions/Restrictions: Please follow-up with your urologist soon as possible return to the emergency department with any refractory symptoms or high fever. Clinical Impressions Clinical Impression: Hydronephrosis with renal and ureteral calculous obstruction Instructions Patient Instructions: DI for Acute Abdominal Pain Discharge ED Provider: Collette Ramos General Adult HPI General Chief complaint: Abdominal Pain Stated complaint: possible kidney stone Time Seen by Provider: 08/07/22 14:22 History of Present Illness HPI narrative: 52-year-old female presenting with right flank pain rating into her right groin similar to kidney stones that she has had in the past. She underwent 2 operative interventions in December of last year for a kidney stone and states that her symptoms today are similar. No blood in her urine no fevers or chills no other symptoms. She does still have her appendix her pain is maximally localized to right lower quadrant currently with no severe pain but it is intermittent. Related Data Home Medications Medication Instructions Recorded Confirmed ondansetron 4 mg disintegrating 4 mg PO 01/24/22 07/07/22 tablet simvastatin 40 mg tablet 40 mg PO 01/24/22 07/07/22 Previous Rx's Medication Instructions Recorded tamsulosin 0.4 mg capsule See Rx Instructions .Route 04/28/22 .COMPLEX #30 caps oxycodone 5 mg tablet 5 mg PO DAILY PRN pain #12 tabs 05/17/22 bupropion HCl 150 mg tablet,12 hr 150 mg PO BID #180 ea 07/07/22 sustained-release (Wellbutrin SR) metoprolol succinate 100 mg 100 mg PO DAILY #90 tabs 07/07/22 tablet,extended release 24 hr (Toprol XL) dicyclomine 20 mg tablet See Rx Instructions .Route 07/12/22 .COMPLEX #180 tabs clonazepam 1 mg tablet (Klonopin) 1 mg PO DAILY PRN anxiety #30 tabs 07/21/22 carisoprodol 350 mg tablet (Soma) 350 mg PO BID PRN muscle pain #30 07/28/22 tabs omeprazole 40 mg capsule,delayed See Rx Instructions .Route 07/28/22 release .COMPLEX #90
[2022-08-07 14:29] VITALS: BP 178/90; PULSE 70; O2SAT 98
--- NOTE | 2022-08-07 14:30 | CT_ITS ---
PROCEDURE INFORMATION: Exam: CT Abdomen And Pelvis Without Contrast Exam date and time: 08/07/2022 3:26 PM Age: 52 years old Clinical indication: Abdominal pain; Flank; Right; Additional info: Right flank and rlq abd pain TECHNIQUE: Imaging protocol: Computed tomography of the abdomen and pelvis without contrast. Radiation optimization: All CT scans at this facility use at least one of these dose optimization techniques: automated exposure control; mA and/or kV adjustment per patient size (includes targeted exams where dose is matched to clinical indication); or iterative reconstruction. REPORTING DATA: Count of CT and Cardiac NM exams in prior 12 months: This patient has received 2 known [address]s and 0 known cardiac nuclear medicine studies in the 12 months prior to the current study. COMPARISON: CT ABDOMEN PELVIS W CON 05/16/2022 7:35 PM FINDINGS: Lungs: Lung bases are clear. Incidental granulomatous calcification within the liver, unchanged. Liver: Normal. No mass. Gallbladder and bile ducts: Gallbladder has been removed. There is mild associated dilatation of the common bile duct. Pancreas: Unremarkable. Main pancreatic duct is not significantly dilated. Spleen: There are scattered calcified granulomas within the spleen, longstanding, otherwise spleen is unremarkable. Adrenal glands: Normal. No mass. Kidneys and ureters: 4 mm nonobstructing right mid ureteral stone. Additional nonobstructing stone within the midportion right renal hilum unchanged. 1 cm hyperdense cortical cyst upper pole left kidney stable in size. Stomach and bowel: Unremarkable. No obstruction. No mucosal thickening. Appendix: Appendix has been removed. Intraperitoneal space: Unremarkable. No free air. No significant fluid collection. Vasculature: Unremarkable. No abdominal aortic aneurysm. Lymph nodes: Unremarkable. No enlarged lymph nodes. Urinary bladder: Unremarkable as visualized. Reproductive: Unremarkable as visualized. Bones/joints: Unremarkable. No acute fracture. Soft tissues: Stable small fat containing periumbilical hernia.. IMPRESSION: 1. 4 mm non-obstructing calculus right mid ureter. No significant hydronephrosis. 2. Additional nonobstructing right renal stone in stable small hyperdense cortical cyst left kidney. 3. Additional nonemergent findings as above.
--- NOTE | 2022-08-07 15:02 | PC.NURSE ---
EZRA CHECKED ON PT
[2022-08-07 15:11] LABS: Eosinophils # 0.1 K/mm3 (0.0-0.4); Eosinophils % 1.6 % (0.1-12.0); Hematocrit 37.9 % (37.0-47.0); Hemoglobin 12.5 g/dL (12.2-16.2); Lymphocytes # 1.5 K/mm3 (0.7-4.5); Lymphocytes % 34.6 % (10-50); Mean Corpuscular HGB Conc 33.1 g/dL (31.8-35.4); Mean Corpuscular Hemoglobin 26.3 pg (27.0-31.2); Mean Corpuscular Volume 79.4 fl (81-99); Mean Platelet Volume 8.7 fl (7.4-10.4); Monocytes # 0.3 K/mm3 (0.1-1.0); Monocytes % 7.5 % (1.7-9.3); Neutrophils # 2.4 K/mm3 (1.8-7.8); Neutrophils % 55.2 % (37.0-80.0); Platelet Count 244 K/mm3 (142-424); Red Blood Count 4.77 M/mm3 (4.20-5.40); Red Cell Distribution Width 15.6 % (11.5-17.5); White Blood Count 4.3 K/mm3 (4.8-10.8)
[2022-08-07 15:11] LABS: Microscopic, Urine URINE MICROSCOPIC (MICROSCOPIC)
[2022-08-07 15:13] LABS: Appearance,Urine CLEAR (Clear); Bilirubin,Urine Negative (Negative); Blood, Urine 1+ (Negative); Color,Urine YELLOW (Yellow); Glucose,Urine (UA) Negative (Negative); Ketones,Urine Negative (Negative); Leukocyte Esterase,Urine Negative (Negative); Nitrate,Urine Negative (Negative); PH,Urine 5.5 (5.0-8.5); Protein,Urine Negative (Negative); Specific Gravity, Urine 1.025 (1.005-1.030); Urobilinogen,Urine 0.2 EU/dl (0.2)
[2022-08-07 15:13] LABS: Chloride 100 mmol/L (98-107); Potassium 4.4 mmoL/L (3.5-5.1); Sodium 138 mmol/L (136-145)
[2022-08-07 15:16] LABS: Alanine Aminotransferase 19 U/L (12-78); Albumin Level 4.6 g/dl (3.5-5.0); Albumin/Globulin Ratio 1.2 (1.1-1.8); Alkaline Phosphatase 95 U/L (38-126); Anion Gap 14.4 mEq/L (5-15); Aspartate Amino Transferase 25 U/L (14-36); Bilirubin,Total 0.4 mg/dl (0.2-1.3); Blood Urea Nitrogen 14 mg/dl (7-17); Carbon Dioxide 28 mmol/L (22.0-30.0); Creatinine Clearance Estimated 101 mL/min (50-200); Estimated Glomerular Filt Rate 76 ml/min (>60); GFR (African American) 92 ML/MIN (>60); Globulin 3.7 g/dL (1.3-3.2); Total Protein,Serum 8.3 g/dl (6.3-8.2)
[2022-08-07 15:16] LABS: Urine Pregnancy, HCG Qual. Negative (Negative)
[2022-08-07 15:17] LABS: Calcium 9.5 mg/dl (8.4-10.2); Glucose 84 mg/dl (74-100)
[2022-08-07 15:24] LABS: Bacteria,Urine Trace /lpf; Mucus,Urine Trace /lpf; WBC,Urine Occasional #/hpf (0-3)
--- NOTE | 2022-08-07 15:41 | PC.NURSE ---
EZRA ROUNDED ON PT
--- NOTE | 2022-08-07 16:31 | PC.NURSE ---
EZRA ROUNDED ON PT
[2022-08-07 17:34] VITALS: BP 172/84; PULSE 74; RESP 20; TEMP 36.7; O2SAT 97
== END 2022-08-07 17:35 | disposition home or self-care (01) ==
PROVIDERS: Emergency Provider Student in an Organized Health Care Education/Training Program; PCP Family Medicine
DX: N13.2 Hydronephrosis with renal and ureteral calculous obstruction (principal); I10 Essential (primary) hypertension; E78.5 Hyperlipidemia, unspecified; K21.9 Gastro-esophageal reflux disease without esophagitis
CPT/HCPCS: 74176; 80053; 81001; 81025; 85025; 96361; 96374; 96375; 99285; J2405

== ENCOUNTER → 2022-09-08 23:07 | Outpatient (CLI) | payer BC, SELFPAY | PROVIDERS: PCP Nurse Practitioner; Visit Provider Nurse Practitioner | DX: N39.0 Urinary tract infection, site not specified (principal) | CPT/HCPCS: 87086 ==

== ENCOUNTER → 2022-10-06 23:18 | Outpatient (CLI) | payer BC, SELFPAY | PROVIDERS: PCP Family Medicine; Visit Provider Family Medicine | DX: N20.0 Calculus of kidney (principal) | CPT/HCPCS: 87086 ==

== ENCOUNTER → 2022-12-14 23:21 | Outpatient (CLI) | payer BC, SELFPAY ==
[2022-12-14 18:30] LABS: Coronavirus 19, PCR Not Detected (NotDetected); Influenza A, PCR Not Detected (NotDetected); Influenza B, PCR Not Detected (NotDetected)
== END ==
PROVIDERS: PCP Family Medicine; Visit Provider Nurse Practitioner
DX: J06.9 Acute upper respiratory infection, unspecified (principal)
CPT/HCPCS: 87636

== ENCOUNTER → 2023-02-10 23:22 | Outpatient (CLI) | payer BC, SELFPAY ==
[2023-02-10 18:13] LABS: Coronavirus 19, PCR Not Detected (NotDetected); Influenza A, PCR Not Detected (NotDetected); Influenza B, PCR Not Detected (NotDetected)
[2023-02-10 20:11] LABS: Amphetamine/Metha Screen,Urine Negative ng/ml (<1000)
[2023-02-10 20:12] LABS: Barbiturates Screen,Urine Negative ng/ml (<200)
[2023-02-10 20:13] LABS: Cannabinoid Screen,Urine Negative ng/ml (<50)
[2023-02-10 20:14] LABS: Cocaine Screen,Urine Negative ng/ml (<300)
[2023-02-10 20:15] LABS: Opiate Screen,Urine Negative ng/ml (<300)
[2023-02-10 20:16] LABS: Phencyclidine Screen,Urine Negative ng/ml (<25)
[2023-02-10 20:32] LABS: Benzodiazepines Screen,Urine Negative ng/ml (<200)
[2023-02-10 21:20] LABS: Methadone Screen,Urine Negative ng/ml (<300)
== END ==
PROVIDERS: PCP Family Medicine; Visit Provider Family Medicine
DX: B34.9 Viral infection, unspecified (principal); Z79.899 Other long term (current) drug therapy
CPT/HCPCS: 80305; 87636

== ENCOUNTER 2023-05-08 23:40 | Emergency (ER) | payer BC, SELFPAY ==
[2023-05-08 23:43] VITALS: BP 205/111; PULSE 83; RESP 18; TEMP 36.4; O2SAT 100; BMI 28.3
[2023-05-09] MEDS: cephALEXin 500MG CAPSULE 1000 MG PO (00:13)
[2023-05-09] MEDS: BACITRACIN ZINC OINT 30GM TUBE TP (00:13)
--- NOTE | 2023-05-09 00:13 | ED_ITS ---
Discharge Plan Disposition Patient Disposition: Home, Self-Care Condition: Good Prescriptions Prescriptions: New bacitracin 500 unit/gram ointment 1 applic topical BID Qty: 30 0RF cephalexin 500 mg capsule 1,000 mg PO Q8H 7 Days Qty: 42 0RF No Action atorvastatin [Lipitor] 20 mg tablet 20 mg PO DAILY Qty: 90 3RF omeprazole 40 mg capsule,delayed release(DR/EC) See Rx Instructions .ROUTE .COMPLEX Qty: 180 3RF Dose Instruction: TAKE ONE CAPSULE BY MOUTH DAILY Rx Instructions: TAKE ONE CAPSULE BY twice daily metoprolol succinate [Toprol XL] 100 mg tablet extended release 24 hr 100 mg PO DAILY Qty: 90 3RF carisoprodol [Soma] 350 mg tablet 350 mg PO HS PRN (Reason: muscle pain) Qty: 30 3RF bupropion HCl [Wellbutrin SR] 150 mg tablet sustained-release 12 hr 150 mg PO BID Qty: 180 3RF Nurtec ODT 75 mg tablet,disintegrating 75 mg PO Q OTHER DAY PRN (Reason: migraine headache) Qty: 10 2RF Rx Instructions: sample provided ibuprofen 800 mg tablet 800 mg PO TID PRN (Reason: pain) 7 Days Qty: 60 10RF ondansetron 4 mg tablet,disintegrating 4 mg PO Q6H PRN (Reason: nausea and vomiting) 5 Days Qty: 20 0RF Referrals Follow up/Referrals: Rashawn De Jesus MD [Primary Care Provider] - See instructions Activity Restrictions/Add. Instructions Additional Instructions/Restrictions: You were evaluated in the emergency department today. Please apply the antibiotic ointment to your wound twice a day. Keep the wound clean and dry. You may apply a dressing for protection, however if the dressing gets wet, please remove it and apply a clean dressing right away. 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 Take Tylenol and ibuprofen at home as needed for pain. Return to the emergency department for new or worsening symptoms, such as significant worsening swelling, significant worsening redness, pus draining from the wounds, or other concerns. Clinical Impressions Clinical Impression: Burn of hand, right, first degree, Burn of hand, right, second degree, Cellulitis Instructions Patient Instructions: Cellulitis, Retana Discharge ED Provider: Bella Sr General Adult HPI General Chief complaint: Burn/Smoke Inhalation Stated complaint: Burn on right hand on 05/03, red, swollen, with pus Time Seen by Provider: 05/08/23 23:48 Mode of Arrival: Ambulatory Source of Information: Patient Limitations: No Limitations Description of Symptoms (Recalled from ER Triage Doc. by RN): Pt burned her right hand while cooking pancakes 2 days ago. Pt took oral abx and using neosporin, increased swelling and redness today. Pt is Htn at this time, takes daily metoprolol. Pt states she has been going through a lot, recently lost her . History of Present Illness HPI narrative: This patient is a 53-year-old female with a history of hypertension and hyperlipidemia presenting to the emergency department for evaluation with concern for wounds to the dorsal aspect of her right hand. She advises that she was making pancakes 05/03 when she suffered retana to the dorsal aspect of her right hand. She stated that she had been treating them with Neosporin and Aquaphor, however her right hand has started to swell more and she has had worsening redness to small open wounds on the dorsal aspect of her right hand. No fevers or systemic symptoms noted. No numbness or tingling. Patient denies any other concerns or complaints. Related Data Previous Rx's Medication Instructions Recorded bupropion HCl 150 mg tablet,12 hr 150 mg PO BID #180 ea 07/07/22 sustained-release (Wellbutrin SR) ondansetron 4 mg disintegrating 4 mg PO Q6H PRN nausea and 08/07/22 tablet vomiting 5 days #20 tabs ibuprofen 800 mg tablet 800 mg PO TID PRN pain 7 days #60 08/18/22 tabs rimegepant 75 mg disintegrating 75 mg PO Q OTHER DAY PRN migraine 12/28/22 tablet (Nurtec ODT) headache #10 tabs atorvastatin 20 mg tablet (Lipitor) 20 mg PO DAILY #90 tabs 01/05/23 metoprolol succinate 100 mg 100 mg PO DAILY #90 tabs 01/05/23 tablet,extended release 24 hr (Toprol XL) omeprazole 40 mg capsule,delayed See Rx Instructions .Route 01/05/23 release .COMPLEX #180 caps carisoprodol 350 mg tablet (Soma) 350 mg PO HS PRN muscle pain #30 03/15/23 tabs bacitracin 500 unit/gram topical 1 applic topical BID #30 grams 05/09/23 ointment cephalexin 500 mg capsule 1,000 mg (2 x 500 mg) PO Q8H 7 05/09/23 days #42 caps Allergies Allergy/AdvReac Type Severity Reaction Status Date / Time No Known Allergies Allergy Verified 03/15/23 15:38 [facility] Disclaimer: The information contained in this section may have been updated after the patient was seen, as this information can be updated by other users. Medical History Medication management UTI (urinary tract infection), bacterial Renal colic on right side Right ureteral stone Renal colic on left side Kidney stones Ureteral obstruction, left History of gastroesophageal reflux (GERD) Hyperlipidemia Hypertension Surgical History History of hysterectomy H/O section S/P cholecystectomy Family History Other Cancer Family history of diabetes mellitus type II Family history of hypertension Social History Smoking Status: Never smoker alcohol intake: never current occupational status: employed Travel in the last 8 weeks: None household members: significant other housing: house ROS Obtained: Yes All systems reviewed & no additional complaints except as documented Physical Exam General General appearance: alert Comment: Tearful Head Head exam: atraumatic and normocephalic Eye Eye exam: Present normal appearance, PERRL and EOMI ENT ENT exam: Present normal exam, normal oropharynx, mucous membranes moist and normal external ear exam Neck Neck exam: Present normal inspection, full ROM and trachea midline; Absent tenderness Chest Chest inspection: Present normal inspection and symmetric chest wall rise; Absent tenderness Respiratory Respiratory exam: Present normal lung sounds bilaterally; Absent respiratory distress, wheezes, stridor or accessory muscle use Cardiovascular Cardiovascular exam: Present regular rate and normal rhythm Abdominal Exam Abdominal exam: Present soft; Absent distention, tenderness or guarding Extremities Exam Extremities exam: Present full ROM, normal capillary refill and edema (R hand); Absent tenderness Expanded Upper Extremity Exam Right: Hand L/R back image: 2 1. Small superficial wounds with mild superficial skin slough over the wounds. Minor surrounding erythema/warmth. No palpable induration, fluctuance, or purulent drainage. Neurovascularly intact distally. 2. 3. 4. Back Exam Back exam: Present normal inspection and full ROM; Absent tenderness Neurological Exam Neurological exam: Present alert, oriented X3, CN II-XII intact and normal gait; Absent motor sensory deficit Psychiatric Psychiatric exam: Present normal affect and normal mood Skin Skin exam: Present warm and dry Medical Decision Making Medical Records Medical records reviewed: Yes I reviewed the patient's medical records. Ministerio Inquiry Pt receiving controlled substance: No Vital Signs: 05/08/23 23:43 Temperature 97.5 F L Temperature Source Oral Pulse Rate [Left] 83 Respiratory Rate 18 Blood Pressure [Right Arm] 205/111 H Blood Pressure Mean [Right Arm] 142 Blood Pressure Source [Right Arm] Automatic Cuff Blood Pressure Position [Right Arm] Sitting 02 Sat by Pulse Oximetry 100 Oxygen Delivery Method Room Air Lab Data Lab results reviewed: Yes I reviewed the patient's lab results. Orders (Tests/Meds): ED MEDICATIONS Discontinued Medications Generic Name Dose Route Start Last Admin Trade Name Freq PRN Reason Stop Dose Admin Bacitracin 1 gm 05/09/23 00:04 05/09/23 00:13 Bacitracin Zinc Oint 30gm Tube TP 05/09/23 00:05 1 blister ONCE ONE Administration Cephalexin HCl 1,000 mg 05/09/23 00:04 05/09/23 00:13 Cephalexin 500mg Capsule PO 05/09/23 00:05 1,000 mg ONCE ONE Administration Medical Decision Narrative: In summary, this patient is a 53-year-old female presenting to the Emergency Department for evaluation of wound check of retana to her right hand that occurred several days ago. Differential diagnoses considered include but are not limited to normal routine healing, cellulitis, abscess, wound infection. Ruling out the most morbid conditions drove assessment. On exam, the patient is well-appearing. She is hypertensive, however she states that she got herself very worked up on the way over here thinking about the fact that her just . She stated that that was her first movement of quiet/alone time, as she has been with family otherwise. She is tearful, but she denies SI/HI or other concerns and states that she is coping as well as she can be. She does have retana to the dorsal aspect of the right hand with mild amount of skin slough over top of these retana. Mild surrounding erythema and warmth, which could be related to first-degree burn but cannot exclude developing cellulitis. Given that the patient is well-appearing without systemic symptoms, I do not feel that labs are indicated. No indication for imaging based on clinical exam. I feel patient is appropriate for treatment with topical bacitracin as well as instructions for wound care and a prescription for oral Keflex. She was given first dose of Keflex here as well as wound care. At this time, the patient was deemed to be appropriate for discharge. Strict return precautions were given, and she was given instructions for follow-up with her primary care provider for wound reassessment. Patient was discharged in stable condition after all questions were answered. Critical Care Critical Care Time Critical Care Time: No
[2023-05-09 00:33] VITALS: BP 196/107; PULSE 79; RESP 18; TEMP 36.4; O2SAT 98
== END 2023-05-09 00:36 | disposition home or self-care (01) ==
PROVIDERS: Emergency Provider Emergency Medicine; PCP Family Medicine
DX: T23.261A Burn of second degree of back of right hand, initial encounter (principal); I10 Essential (primary) hypertension; E78.5 Hyperlipidemia, unspecified; X19.XXXA Contact with other heat and hot substances, initial encounter; L03.113 Cellulitis of right upper limb
CPT/HCPCS: 99283

== ENCOUNTER 2023-05-12 18:37 | Outpatient (CLI) | payer BC, SELFPAY ==
[2023-05-12 18:59] LABS: Basophils # 0.1 K/mm3 (0-0.2); Basophils % 1.1 % (0.1-2.0); Eosinophils # 0.1 K/mm3 (0.0-0.4); Eosinophils % 1.7 % (0.1-12.0); Hematocrit 38.5 % (37.0-47.0); Hemoglobin 12.5 g/dL (12.2-16.2); Lymphocytes # 1.8 K/mm3 (0.7-4.5); Lymphocytes % 42.3 % (10-50); Mean Corpuscular HGB Conc 32.4 g/dL (31.8-35.4); Mean Corpuscular Hemoglobin 27.9 pg (27.0-31.2); Mean Corpuscular Volume 86.1 fl (81-99); Mean Platelet Volume 9.2 fl (7.4-10.4); Monocytes # 0.3 K/mm3 (0.1-1.0); Monocytes % 6.8 % (1.7-9.3); Neutrophils # 2.1 K/mm3 (1.8-7.8); Neutrophils % 48.1 % (37.0-80.0); Platelet Count 249 K/mm3 (142-424); Red Blood Count 4.48 M/mm3 (4.20-5.40); Red Cell Distribution Width 15.9 % (11.5-17.5); White Blood Count 4.3 K/mm3 (4.8-10.8)
[2023-05-12 19:18] LABS: Alanine Aminotransferase 119 U/L (12-78); Albumin Level 4.3 g/dl (3.5-5.0); Albumin/Globulin Ratio 1.5 (1.1-1.8); Alkaline Phosphatase 189 U/L (38-126); Anion Gap 11.3 mEq/L (5-15); Aspartate Amino Transferase 35 U/L (14-36); Bilirubin,Total 0.7 mg/dl (0.2-1.3); Blood Urea Nitrogen 17 mg/dl (7-17); Calcium 9.3 mg/dl (8.4-10.2); Carbon Dioxide 30 mmol/L (22.0-30.0); Chloride 103 mmol/L (98-107); Chol/HDL Ratio 3.8 (1-3.5); Cholesterol 204 mg/dl (140-200); Estimated Glomerular Filt Rate 88 ml/min (>60); GFR (African American) 106 ML/MIN (>60); Globulin 2.9 g/dL (1.3-3.2); Glucose 101 mg/dl (74-100); HDL Cholesterol 53 mg/dl (40-60); Potassium 4.3 mmoL/L (3.5-5.1); Sodium 140 mmol/L (136-145); Total Protein,Serum 7.2 g/dl (6.3-8.2); Triglycerides 144 mg/dl (30-150); VLDL Cholesterol 29 mg/dL (0-40)
[2023-05-12 19:29] LABS: 25-OH Vitamin D, Total 20.7 ng/mL (30-100)
[2023-05-12 19:49] LABS: Thyroid Stimulating Hormone 2.57 uIU/mL (0.465-4.68)
[2023-05-12 20:24] LABS: Vitamin B12 384 pg/mL (239-931)
[2023-05-12 20:26] LABS: Folate 7.24 ng/mL
== END 2023-05-12 23:59 ==
LOC: LAB.DROPOF 18:38
PROVIDERS: PCP Nurse Practitioner Family; Visit Provider Nurse Practitioner Family
DX: E78.5 Hyperlipidemia, unspecified (principal); E55.9 Vitamin D deficiency, unspecified; Z79.899 Other long term (current) drug therapy
CPT/HCPCS: 80053; 80061; 82306; 82607; 82746; 84443; 85025

== ENCOUNTER 2023-06-11 07:42 | Outpatient (CLI) | payer BC, SELFPAY ==
[2023-06-09 18:16] LABS: Alanine Aminotransferase 23 U/L (12-78); Albumin Level 4.1 g/dl (3.5-5.0); Albumin/Globulin Ratio 1.5 (1.1-1.8); Alkaline Phosphatase 104 U/L (38-126); Anion Gap 7.8 mEq/L (5-15); Aspartate Amino Transferase 27 U/L (14-36); Bilirubin,Total 0.3 mg/dl (0.2-1.3); Blood Urea Nitrogen 13 mg/dl (7-17); Calcium 9.4 mg/dl (8.4-10.2); Carbon Dioxide 28 mmol/L (22.0-30.0); Chloride 108 mmol/L (98-107); Estimated Glomerular Filt Rate 88 ml/min (>60); GFR (African American) 106 ML/MIN (>60); Globulin 2.7 g/dL (1.3-3.2); Glucose 100 mg/dl (74-100); Potassium 3.8 mmoL/L (3.5-5.1); Sodium 140 mmol/L (136-145); Total Protein,Serum 6.8 g/dl (6.3-8.2)
== END 2023-06-11 23:59 | disposition home or self-care (01) ==
LOC: LAB.DROPOF 07:43
PROVIDERS: PCP Family Medicine; Visit Provider Family Medicine
DX: I10 Essential (primary) hypertension (principal); L03.90 Cellulitis, unspecified
CPT/HCPCS: 80053

== ENCOUNTER 2023-11-17 10:10 | Outpatient (CLI) | payer BC, SELFPAY | END 2023-11-17 23:59 | disposition home or self-care (01) | LOC: LAB.DROPOF 11-20 10:11 | PROVIDERS: PCP Nurse Practitioner Family; Visit Provider Nurse Practitioner Family | DX: R20.0 Anesthesia of skin (principal); R20.2 Paresthesia of skin | CPT/HCPCS: 87086 ==

== ENCOUNTER 2024-05-16 09:00 | Outpatient (CLI) | payer BC, SELFPAY ==
[2024-05-16 18:38] LABS: Basophils % 0.8 % (0.1-2.0); Eosinophils # 0.1 K/mm3 (0.0-0.4); Eosinophils % 2.2 % (0.1-12.0); Hematocrit 38.5 % (37.0-47.0); Hemoglobin 12.1 g/dL (12.2-16.2); Lymphocytes # 1.4 K/mm3 (0.7-4.5); Lymphocytes % 39.1 % (10-50); Mean Corpuscular HGB Conc 31.4 g/dL (31.8-35.4); Mean Corpuscular Volume 82.8 fl (81-99); Mean Platelet Volume 10.6 fl (7.4-10.4); Monocytes # 0.3 K/mm3 (0.1-1.0); Neutrophils # 1.8 K/mm3 (1.8-7.8); Neutrophils % 49.6 % (37.0-80.0); Platelet Count 243 K/mm3 (142-424); Red Blood Count 4.65 M/mm3 (4.20-5.40); Red Cell Distribution Width 14.2 % (11.5-17.5); White Blood Count 3.6 K/mm3 (4.8-10.8)
[2024-05-16 19:53] LABS: Alanine Aminotransferase 23 U/L (12-78); Albumin Level 4.6 g/dl (3.5-5.0); Albumin/Globulin Ratio 1.6 (1.1-1.8); Alkaline Phosphatase 103 U/L (38-126); Anion Gap 10.8 mEq/L (5-15); Aspartate Amino Transferase 24 U/L (14-36); Bilirubin,Total 0.4 mg/dl (0.2-1.3); Blood Urea Nitrogen 15 mg/dl (7-17); Calcium 9.4 mg/dl (8.4-10.2); Carbon Dioxide 28 mmol/L (22.0-30.0); Chloride 101 mmol/L (98-107); Chol/HDL Ratio 2.9 (1-3.5); Cholesterol 212 mg/dl (140-200); Estimated Glomerular Filt Rate 88 ml/min (>60); GFR (African American) 106 ML/MIN (>60); Globulin 2.9 g/dL (1.3-3.2); Glucose 94 mg/dl (74-100); HDL Cholesterol 74 mg/dl (40-60); Potassium 4.8 mmoL/L (3.5-5.1); Sodium 135 mmol/L (136-145); Total Protein,Serum 7.5 g/dl (6.3-8.2); Triglycerides 207 mg/dl (30-150); VLDL Cholesterol 41 mg/dL (0-40)
[2024-05-16 20:03] LABS: Direct LDL Cholesterol 108.21 mg/dL (100-129)
[2024-05-16 20:24] LABS: Thyroid Stimulating Hormone 3.54 uIU/mL (0.465-4.68)
[2024-05-16 21:15] LABS: Hemoglobin A1C 5.5 % (4.0-6.0)
[2024-05-16 22:01] LABS: HIV Combo NEGATIVE (Negative)
[2024-05-16 22:10] LABS: Hepatitis C Ab Qual. W/ RFX NEGATIVE (Negative)
== END 2024-05-16 23:59 | disposition home or self-care (01) ==
LOC: LAB.DROPOF 05-17 11:26
PROVIDERS: PCP Family Medicine; Visit Provider Family Medicine
DX: Z01.818 Encounter for other preprocedural examination (principal); M62.838 Other muscle spasm
CPT/HCPCS: 80053; 80061; 83036; 84443; 85025; 86803; 87389

== ENCOUNTER 2024-12-31 09:15 | Outpatient (CLI) | payer BC, SELFPAY ==
[2024-12-31 15:22] LABS: Alanine Aminotransferase 100 U/L (12-78); Albumin Level 4.7 g/dl (3.5-5.0); Albumin/Globulin Ratio 1.3 (1.1-1.8); Alkaline Phosphatase 165 U/L (38-126); Anion Gap 12.8 mEq/L (5-15); Aspartate Amino Transferase 68 U/L (14-36); Bilirubin,Total 0.6 mg/dl (0.2-1.3); Blood Urea Nitrogen 8 mg/dl (7-17); Calcium 9.4 mg/dl (8.4-10.2); Carbon Dioxide 26 mmol/L (22.0-30.0); Chloride 100 mmol/L (98-107); Cholesterol 242 mg/dl (140-200); Creatinine,Serum 0.70 mg/dl (0.52-1.04); Estimated Glomerular Filt Rate 88 ml/min (>60); GFR (African American) 106 ML/MIN (>60); Globulin 3.6 g/dL (1.3-3.2); Glucose 111 mg/dl (74-100); HDL Cholesterol 71 mg/dl (40-60); Potassium 4.8 mmoL/L (3.5-5.1); Sodium 134 mmol/L (136-145); Total Protein,Serum 8.3 g/dl (6.3-8.2); Triglycerides 145 mg/dl (30-150)
[2024-12-31 19:12] LABS: 25-OH Vitamin D, Total 34.9 ng/mL (30-100)
== END 2024-12-31 23:59 | disposition home or self-care (01) ==
LOC: LAB.DROPOF 01-02 13:33
PROVIDERS: PCP Family Medicine; Visit Provider Nurse Practitioner
DX: E78.5 Hyperlipidemia, unspecified (principal); E55.9 Vitamin D deficiency, unspecified
CPT/HCPCS: 80053; 80061; 82306

== ENCOUNTER 2025-01-16 13:51 | Outpatient (CLI) | payer BC, SELFPAY ==
--- OUTSIDE RECORDS SUMMARY | 2024-06-20 08:15 | XMS_ITS | Continuity of Care Document ---
Author Organization [facility] o Address [address] [place] [address] Phone Care Team Providers Care Clockmaker Name Role Phone Koko Villarreal Unavailable Unavailab le Allergies, Adverse Reactions, Alerts Substance Reaction Status Criticality No Known Allergies Active No Inform ation Medications Medication Instructions Dosage Effective Dates (start - stop) Status Comments acetaminophen 500 mg tablet take 1 tablet by oral route every 6 hours as needed - Active ibuprofen 400 mg tablet take 1-2 tablets by oral route every 6 hours as needed for pain - Active Procedures Procedure Date Postop followup visit Wrist endoscopy/rel trans carp lig Surgery Prepay Surgery Prepay Office/outpatient visit,[facility] 2024 Advance Directives Directive Yes / No Effective Date File Name No Information Encounters Encounter Description Practice Location Reason(s) For Visit Diagnoses Date Provider Providers Copied on Encounter [facility] [address], [address], [place] tel:[phone] [facility] Carpal tunnel syndrome, right upper limb May- 5 Thelma Sutherland. [address] [place], [place], [id number], . tel:[phone] Referring Provider: Bashir Cannon, [address] [address], [place], [address] . tel:[phone], [facility], tel:[phone] [facility] No Information 5 Daivs Camejo. [address] [address], [place], [place], [address] [place] [address], . tel:[phone] Referring Provider: Bashir Cannon, [address] [address], [place], [address] . tel:[phone], [facility], tel:[phone] [facility] No Information 5 Davis Camejo. [address] [address], [place], [place], [address] [place] [address], [place]. tel:[phone] Referring Provider: Bashir Cannon, [address] [address], [place], [address] . tel:[phone], [facility], tel:[phone] [place] [address] No Information 5 Davis Camejo. [address] [address], [place], [address] [place] [address], [place]. tel:[phone] Referring Provider: Bashir Cannon, [address] [address], [place], [address] . tel:[phone], [facility], tel:[phone] [place] [address] No Information 5 Davis Camejo. [address], [address] [place] [address], . tel:[phone] Referring Provider: Bashir Cannon, [address] [address], [place], [address] . tel:[phone] Office/outpa tient visit,[facility], [place], [address], [place] tel:[phone] Shakira [facility] Carpal tunnel syndrome, right upper limbParesthesi a of skin 5 Davis Camejo. 0507 [facility], [facility] 100, [place], [place], [id number], [place]. tel:[phone] Referring Provider: Rashawn De Jesus, [facility] [address], [place], [address] . tel:[phone] Family History Family Member Type Diagnosis Age At Onset Father Problem (finding) Hypertension Father Problem (finding) Family history of Hyper lipidemia Mother Problem (finding) Family history of Hyper lipidemia Mother Problem (finding) Hypertension Father Problem (finding) Congenital heart diseas e Mother Problem (finding) Congenital heart diseas e Payers Payer name Insurance type Covered libertarian ID Ludivina medina(s) [place] - [id number] Social History Type Description Quantity Date Captured Comments Alcohol Use Details Unknown Caffeine Use Details Unknown Tobacco Use Status No Information Smoking Status No Information Sex Female Chief Complaint And Reason For Visit No Information Reason For Referral Reason For Referral No Information History Of Present Illness Encounter Date Complaint History Of Prese nt Illness carpal tunnel syndrome Functional Status Date Functional Assessmen t No Information Instructions Date Instruction Additional Infor mation No Information Assessments Type Assessment Date No Information Patient Care Teams Name Effective Dates (start - stop) Status Members No Information
--- OUTSIDE RECORDS SUMMARY | 2024-06-20 08:15 | XMS_ITS | Continuity of Care Document ---
Author Organization [facility] o Address [address] [place] [address] Phone Care Team Providers Care Head Rigger Name Role Phone Koko Villarreal Unavailable Unavailab [...] carp lig Surgery Prepay Surgery Prepay Office/outpatient visit,[facility] 2024 Advance Directives Directive Yes / No Effective Date File Name No Information Encounters Encounter Description Practice Location Reason(s) For Visit Diagnoses Date Provider Providers Copied on Encounter [facility] [address], [address], [place] tel:[phone] [facility] Carpal tunnel syndrome, right upper limb May- 5 Thelma Sutherland. [address] [place], [place], [id number], . tel:[phone] Referring Provider: Bashir Cannon, [address] [address], [place], [address] . tel:[phone], [facility], tel:[phone] [facility] No Information 5 Davis Camejo. [address] [address], [place], [place], [address] [place] [address], . tel:[phone] Referring Provider: Bashir Cannon, [address] [address], [place], [address] . tel:[phone], [facility], tel:[phone] [facility] No Information 5 Davis Camejo. [address] [address], [place], [address] [place] [address], [place]. tel:[phone] Referring Provider: Bashir Cannon, [address] [address], [place], [address] . tel:[phone], [facility], tel:[phone] [place] [address] No Information 5 Davis Camejo. [address] [address], [place], [address] [place] [address], [place]. tel:[phone] Referring Provider: Bashir Cannon, [address] [address], [place], [address] . tel:[phone], [facility], tel:[phone] [place] [address] No Information 5 Davis Camejo. [address], [address] [place] [address], . tel:[phone] Referring Provider: Bashir Cannon, [address] [address], [place], [address] . tel:[phone] Office/outpa tient visit,[facility], [place], [address], [place] tel:[phone] Shakira [facility] Carpal tunnel syndrome, right upper limbParesthesi a of skin 5 Davis Camejo. 1057 [facility], [facility] 100, [place], [place], [id number], [place]. tel:[phone] Referring Provider: Rashawn De Jesus, [facility] [address], [place], [address] . tel:[phone] Family History Family Member Type Diagnosis Age At Onset Father Problem (finding) Hypertension Father Problem (finding) Family history of Hyper lipidemia Mother Problem (finding) Family history of Hyper lipidemia Mother Problem (finding) Hypertension Father Problem (finding) Congenital heart diseas e Mother Problem (finding) Congenital heart diseas e Payers Payer name Insurance type Covered green party ID Ludivina medina(s) [place] - [id number] Social History Type Description Quantity Date Captured [...]
--- OUTSIDE RECORDS SUMMARY | 2024-06-20 08:15 | XMS_ITS | Continuity of Care Document ---
Author Organization [facility] o Address [address] [place] [address] Phone Care Team Providers Care Career Representative Name Role Phone Koko Villarreal Unavailable Unavailab [...] carp lig Surgery Prepay Surgery Prepay Office/outpatient visit,[facility] 2024 Advance Directives Directive Yes / No Effective Date File Name No Information Encounters Encounter Description Practice Location Reason(s) For Visit Diagnoses Date Provider Providers Copied on Encounter [facility] [address], [address], [place] tel:[phone] [facility] Carpal tunnel syndrome, right upper limb May- 5 Thelma Sutherland. [address] [place], [place], [id number], . tel:[phone] Referring Provider: Bashir Cannon, [address] [address], [place], [address] . tel:[phone], [facility], tel:[phone] [facility] No Information 5 Davis Camejo. [address] [address], [place], [address] [place] [address], . tel:[phone] Referring Provider: Bashir Cannon, [address] [address], [place], [address] . tel:[phone], [facility], tel:[phone] [facility] No Information 5 Davis Camejo. [address] [address], [place], [address] [place] [address], [place]. tel:[phone] Referring Provider: Bashir Cannon, [address] [address], [place], [address] . tel:[phone], [facility], tel:[phone] [place] [address] No Information 5 Davis Camejo. [address] [address], [place], [address] [place] [address], [place]. tel:[phone] Referring Provider: Bashir Cannon, [address] [address], [place], [address] . tel:[phone], [facility], tel:[phone] [place] [address] No Information 5 Davis Camejo. [address], [address] [place] [address], . tel:[phone] Referring Provider: Bashir Cannon, [address] [address], [place], [address] . tel:[phone] Office/outpa tient visit,[facility], [place], [address], [place] tel:[phone] Shakira [facility] Carpal tunnel syndrome, right upper limbParesthesi a of skin 5 Davis Camejo. 0197 [facility], [facility] 100, [place], [place], [id number], [place]. tel:[phone] Referring Provider: Rashawn De Jesus, [facility] [address], [place], [address] . tel:[phone] Family History Family Member Type Diagnosis Age At Onset Father Problem (finding) Hypertension Father Problem (finding) Family history of Hyper lipidemia Mother Problem (finding) Family history of Hyper lipidemia Mother Problem (finding) Hypertension Father Problem (finding) Congenital heart diseas e Mother Problem (finding) Congenital heart diseas e Payers Payer name Insurance type Covered republican ID Ludivina medina(s) [place] - [id number] Social History Type Description Quantity Date Captured [...]
--- OUTSIDE RECORDS SUMMARY | 2024-06-20 08:15 | XMS_ITS | Continuity of Care Document ---
Author Organization [facility] o Address [address] [place] [address] Phone Care Team Providers Care Asbestos Worker Helper Name Role Phone Koko Villarreal Unavailable Unavailab [...] carp lig Surgery Prepay Surgery Prepay Office/outpatient visit,[facility] 2024 Advance Directives Directive Yes / No Effective Date File Name No Information Encounters Encounter Description Practice Location Reason(s) For Visit Diagnoses Date Provider Providers Copied on Encounter [facility] [address], [address], [place] tel:[phone] [facility] Carpal tunnel syndrome, right upper limb May- 5 Thelma Sutherland. [address] [place], [place], [id number], . tel:[phone] Referring Provider: Bashir Cannon, [address] [address], [place], [address] . tel:[phone], [facility], tel:[phone] [facility] No Information 5 Davis Camejo. [address] [address], [place], [place], [address] [place] [address], . tel:[phone] Referring Provider: Bashir Cannon, [address] [address], [place], [address] . tel:[phone], [facility], tel:[phone] [facility] No Information 5 Davis Camejo. [address] [address], [place], [address] [place] [address], [place]. tel:[phone] Referring Provider: Bashir Cannon, [address] [address], [place], [address] . tel:[phone], [facility], tel:[phone] [place] [address] No Information 5 Davis Camejo. [address] [address], [place], [address] [place] [address], [place]. tel:[phone] Referring Provider: Bashir Cannon, [address] [address], [place], [address] . tel:[phone], [facility], tel:[phone] [place] [address] No Information 5 Davis Camejo. [address], [address] [place] [address], . tel:[phone] Referring Provider: Bashir Cannon, [address] [address], [place], [address] . tel:[phone] Office/outpa tient visit,[facility], [place], [address], [place] tel:[phone] Shakira [facility] Carpal tunnel syndrome, right upper limbParesthesi a of skin [address] [facility], [facility], [place], [place], [id number], [place]. tel:[phone] Referring Provider: Rashawn De Jesus, [facility] [address], [place], [address] . tel:[phone] Family History Family Member Type Diagnosis Age At Onset Father Problem (finding) Hypertension Father Problem (finding) Family history of Hyper lipidemia Mother Problem (finding) Family history of Hyper lipidemia Mother Problem (finding) Hypertension Father Problem (finding) Congenital heart diseas e Mother Problem (finding) Congenital heart diseas e Payers Payer name Insurance type Covered alliance party ID Ludivina medina(s) [place] - [id number] Social History Type Description Quantity Date Captured [...]
--- OUTSIDE RECORDS SUMMARY | 2024-06-20 08:15 | XMS_ITS | Continuity of Care Document ---
Author Organization [facility] o Address [address] [place] [address] Phone Care Team Providers Care Fashion Patternmaker Name Role Phone Koko Villarreal Unavailable Unavailab [...] carp lig Surgery Prepay Surgery Prepay Office/outpatient visit,[facility] 2024 Advance Directives Directive Yes / No Effective Date File Name No Information Encounters Encounter Description Practice Location Reason(s) For Visit Diagnoses Date Provider Providers Copied on Encounter [facility] [address], [address], [place] tel:[phone] [facility] Carpal tunnel syndrome, right upper limb May- 5 Thelma Sutherland. [address] [place], [place], [id number], . tel:[phone] Referring Provider: Bashir Cannon, [address] [address], [place], [address] . tel:[phone], [facility], tel:[phone] [facility] No Information 5 Davis Camejo. [address] [address], [place], [address] [place] [address], . tel:[phone] Referring Provider: Bashir Cannon, [address] [address], [place], [address] . tel:[phone], [facility], tel:[phone] [facility] No Information 5 Davis Camejo. [address] [address], [place], [address] [place] [address], [place]. tel:[phone] Referring Provider: Bashir Cannon, [address] [address], [place], [address] . tel:[phone], [facility], tel:[phone] [place] [address] No Information 5 Davis Camejo. [address] [address], [place], [address] [place] [address], [place]. tel:[phone] Referring Provider: Bashir Cannon, [address] [address], [place], [address] . tel:[phone], [facility], tel:[phone] [place] [address] No Information 5 Davis Camejo. [address], [address] [place] [address], . tel:[phone] Referring Provider: Bashir Cannon, [address] [address], [place], [address] . tel:[phone] Office/outpa tient visit,[facility], [place], [address], [place] tel:[phone] Shakira [facility] Carpal tunnel syndrome, right upper limbParesthesi a of skin 5 Davis Camejo. 1721 [facility], [facility], [place], [place], [id number], [place]. tel:[phone] Referring Provider: Rashawn De Jesus, [facility] [address], [place], [address] . tel:[phone] Family History Family Member Type Diagnosis Age At Onset Father Problem (finding) Hypertension Father Problem (finding) Family history of Hyper lipidemia Mother Problem (finding) Family history of Hyper lipidemia Mother Problem (finding) Hypertension Father Problem (finding) Congenital heart diseas e Mother Problem (finding) Congenital heart diseas e Payers Payer name Insurance type Covered democrat ID Ludivina medina(s) [place] - [id number] Social History Type Description Quantity Date Captured [...]
--- NOTE | 2025-01-16 14:00 | MM_ITS ---
PROCEDURE INFORMATION: Exam: MG Bilateral Screening 3D Mammography Exam date and time: 01/16/2025 1:59 PM Age: 54 years old Clinical indication: Screening examination. Maternal aunts had breast cancer. TECHNIQUE: Imaging protocol: Bilateral Screening tomosynthesis and 2D mammography including computer-aided detection (CAD) when performed. COMPARISON: 1. MG MM DIG MAMM DX UNILAT RT CAD 05/30/2022 2:31 PM 2. MG MM DIG SCREENING MAMM BI W/CAD 05/03/2022 1:15 PM 3. US BREAST RT COMPLETE 05/30/2022 4:14 PM FINDINGS: MAMMOGRAPHY: Breast composition: There are scattered areas of fibroglandular density. Mass: None. Architectural distortion: None. Calcifications: No suspicious calcifications. Asymmetric density: No developing asymmetry, with particular attention to the upper right breast. Skin thickening: None. Axillary adenopathy: None. IMPRESSION: See comment Patient was referred for six-month follow-up ultrasound probably benign complicated cyst on the right at 1 o'clock on 05/30/2022, if this has not been performed in the interval, advised recall for right sonography at this time. No mammographic evidence of malignancy. Annual screening is recommended unless otherwise clinically indicated. ASSESSMENT: BI-RADS Category 1: Negative.
--- OUTSIDE RECORDS SUMMARY | 2025-01-16 16:32 | XMS_ITS | Encounter Summary ---
Author Organization [place] [address] Care Team Providers Care Gyroscope Repairer Name Role Phone Rashawn De Jesus MD Primary Care Provider [phone] Encounter Details Date Type Department Care Team (Late st Contact Info) Description 08/18/2022 Lab Requisition [facility] [place] [address] Natasha Mix, ATHLETIC EQUIPMENT MANAGER [address] [place] [address] [address] [place] [address] Calculus of kidney; Calculus of ureter; Personal history of urinary calculi Social History Tobacco Use Types Packs/Day Years Used Date Smoking Tobacco: Never Smokeless Tobacco: Never Alcohol Use Standard Drinks/Week Comments No 0 (1 standard drink = 0.6 oz pur e alcohol) Overall Financial Resource Strain (CARDI) Answe r Date Recorded How hard is it for you to pa y for the very basics like food, housing, medical care, and heating? Not very hard 01/25/2022 PHQ-2 Answer Date Recorded PHQ-2 Total Score 4 12/16/2019 [facility] of Occupat ional Health - Occupational Stress Questionnaire Answer Date Recorded Do you feel stress - tense, restless, nervous, or anxious, or unable to sleep at night because your mind is troubled all the time - these days? To some extent 01/25/2022 Exercise Vital Sign Answer Date Recorde d On average, how many days pe r week do you engage in moderate to strenuous exercise (like a brisk walk)? 0 days 01/25/2022 On average, how many minutes do you engage in exercise at this level? 0 min 01/25/2022 Hunger Vital Sign Answer Date Recorded Within the past 12 months, y ou worried that your food would run out before you got the money to buy more. Never true 01/26/20 22 Within the past 12 months, t he food you bought just didn't last and you didn't have money to get more. Never true 01/25/2022 PRAPARE - Transportation Answer Date Re corded In the past 12 months, has l ack of transportation kept you from medical appointments or from getting medications? No 12/29 In the past 12 months, has l ack of transportation kept you from meetings, work, or from getting things needed for daily living? No 01/25/2022 Sexually Active Control Partners Comments Yes Comments No Sex and Gender Information Value Date Recorded Sex Assigned at Not on file Legal Sex Female 10:23 PM EDT Gender Identity Not on file Sexual Orientation Not on file documented as of this encounter Functional Status * Is the person deaf or does he/she have serious difficulty hearing? Answer Date of Assessment Author No 12/05/2019 8:31 AM Rachel Lopez MA * Is the person blind or does he/she have serious difficulty seeing even when wearing glasses? Answer Date of Assessment Author No 12/05/2019 8:31 AM Rachel Lopez MA * Does this person have serious difficulty walking or climbing stairs? Answer Date of Assessment Author No 12/05/2019 8:31 AM Rachel Lopez MA * Does this person have difficulty dressing or bathing? Answer Date of Assessment Author No 12/05/2019 8:31 AM Rachel Lopez MA * Because of a physical, mental or emotional condition, does this person have difficulty doing errands alone such as visiting a doctor's office or shopping? Answer Date of Assessment Author No 12/05/2019 8:31 AM Rachel Lopez MA documented as of this encounter Mental Status * Because of a physical, mental or emotional condition, does this person have serious difficulty concentrating, remembering or making decisions? Answer Entry Date Author No 12/05/2019 8:31 AM Rachel Lopez MA documented in this encounter Plan of Treatment Not on file documented as of this encounter Goals Goal Patient Goal Type Associated Problems Recent Progress Patient-Stated? Author Blood Pressure < 140/90 Blood Pressure 152/82(2023 10:00 PM EDT) No Lizette Ramos RMA Maintain a healthy diet, exercise regularly and maintain an ideal body weight General No Errol Orourke RMA I will drink at least 12 cups of water every day General No Bella Marroquin, RN I will limit the amount of daily sodium to no more than 2000mg/day General No Bella Marroquin, RN documented as of this encounter Procedures Procedure Name Priority Date/Time Associated Diagnosis Comments CALCULI (STONE) ANALYSIS - REF LAB Routine 08/18/2022 3:01 PM EDT Calculus of kidney Calculus of ureter Personal history of urinary calculi documented in this encounter Results * CALCULI (STONE) ANALYSIS - REF LAB (08/18/2022 3:01 PM EDT) Calculi Comp See Note 08/21/2022 9:13 AM EDT [facility] Comment: Sample composed primarily of organic material not typically associated with calculi composition. No crystalline material identified. INTERPRETIVE INFORMATION: Calculi (Stone) analysis Calculi are the products of physiological processes that yield crystalline compounds in a matrix of biological compounds and blood. Matrix components are not reported. The clinically significant crystalline components identified in calculi specimens are reported. Gross description may not be consistent with composition determined by FTIR analysis. Performed By: [facility] [address] [place] [id number] Meat Dresser: Waqar Cantu MD, PhD Calculi Mass 12 mg 08/21/2022 9:13 AM EDT [facility] Calculi Desc See Note 08/21/2022 9:13 AM EDT [facility] Comment: Specimen consists of two brown and alston fragments. The total weight is 12 mg. Calculus URINE SPECIMEN COLLECTION / Unknown 08/18/2022 3:01 PM EDT 08/18/2022 8:01 PM EDT Ntaasha Mix ATHLETIC EQUIPMENT MANAGER MICROBIOLOGY - GENERAL OR DERABLES Final Result [facility] [address] [place] [address] documented in this encounter Visit Diagnoses Diagnosis Calculus of kidney Calculus of ureter Personal history of urinary calculi documented in this encounter Additional Health Concerns Assessment Noted Time PHQ-9 Depression Total Score: 17 020 1:09 PM EDT PHQ-2 Depression Total Score: 4 12/16/19 20 1:09 PM EDT documented as of this encounter Care Teams Gyroscope Repairer Relationship Specialty Start Date End Date Rashawn De Jesus MD PCP - General Family Medicine 01/22/22 documented as of this encounter
--- OUTSIDE RECORDS SUMMARY | 2025-01-16 16:32 | XMS_ITS | Encounter Summary ---
Author Organization [place] [address] Care Team Providers Care Mica Plate Layer Name Role Phone Edil Al DO Primary Care Provider [phone] Zach Davalos MD Primary Care Provider [phone] Paulina Mullen TOXICS PROGRAM OFFICER Unavailable Unavail able Rashawn De Jesus MD Primary Care Provider [phone] Reason for Visit * Reason Onset Date Comments Medication Refill 04/27/2017 Encounter Details Date Type Department Care Team (Late st Contact Info) Description 04/27/[address] [facility] [address] [place] [address] Edil Al DO [address] [place] [address] Medication Refill Social History Tobacco Use Types Packs/Day Years Used Date Smoking Tobacco: Never Smokeless Tobacco: Never Alcohol Use Standard Drinks/Week Comments No 0 (1 standard drink = 0.6 oz pur e alcohol) Comments No Sex and Gender Information Value Date Recorded Sex Assigned at Not on file Legal Sex Female 10:23 PM EDT Gender Identity Not on file Sexual Orientation Not on file documented as of this encounter Functional Status * Is the person deaf or does he/she have serious difficulty hearing? Answer Date of Assessment Author No 01/05/2017 11:10 AM Ab avril Wall RN * Is the person blind or does he/she have serious difficulty seeing even when wearing glasses? Answer Date of Assessment Author No 01/05/2017 11:10 AM Ab avril Wall RN * Does this person have serious difficulty walking or climbing stairs? Answer Date of Assessment Author No 01/05/2017 11:10 AM Ab avril Wall RN * Does this person have difficulty dressing or bathing? Answer Date of Assessment Author No 01/05/2017 11:10 AM Ab avril Wall RN * Because of a physical, mental or emotional condition, does this person have difficulty doing errands alone such as visiting a doctor's office or shopping? Answer Date of Assessment Author No 01/05/2017 11:10 AM Ab avril Wall RN documented as of this encounter Mental Status * Because of a physical, mental or emotional condition, does this person have serious difficulty concentrating, remembering or making decisions? Answer Entry Date Author No 01/05/2017 11:10 AM Ab avril Wall RN documented in this encounter Plan of Treatment Not on file documented as of this encounter Goals Goal Patient Goal Type Associated Problems Recent Progress Patient-Stated? Author Blood Pressure < 140/90 Blood Pressure 152/82(2023 10:00 PM EDT) No Lizette Ramos RMA Maintain a healthy diet, exercise regularly and maintain an ideal body weight General No Errol Orourke RMA documented as of this encounter Visit Diagnoses Diagnosis Acute pain of right shoulder documented in this encounter Additional Health Concerns Infection Onset Date Last Indicated Resolved Time R/O COVID-19 03/06/2020 03/06/2020 03/26/2020 10:1 3 PM EST R/O COVID-19 12/24/2020 12/24/2020 12/25/2020 12:3 8 AM EDT R/O COVID-19 01/17/2021 01/17/2021 01/17/2021 6:23 PM EST R/O COVID-19 01/23/2021 01/23/2021 01/23/2021 2:33 PM EST R/O COVID-19 03/23/2021 03/23/2021 03/23/2021 8:39 PM EST R/O COVID-19 02/23/2022 02/23/2022 02/23/2022 3:29 AM EST documented as of this encounter Care Teams Mica Plate Layer Relationship Specialty Start Date End Date Edil Al DO [address] [place] [address] PCP - General 12/15/08 12/04/19 Zach Davalos MD [address] [place] [address] PCP - General Family Medicine 12/05/19 01/21/22 Rashawn De Jesus MD PCP - General Family Medicine 01/22/22 Paulina Mullen LCSW Harvesting Supervisor 12/05/19 documented as of this encounter
--- OUTSIDE RECORDS SUMMARY | 2025-01-16 16:32 | XMS_ITS | Clinical Summary ---
Author Organization [facility] Address [address] [place] [address] Phone Care Team Providers Care Road Service Locksmith Name Role Phone Rashawn De Jesus MD Primary Care Provider [phone] Allergies No known active allergies Medications atorvastatin (LIPITOR) 20 mg Oral TabletIndications: Mixed hyperlipidemia Take 1 Tab by mouth daily. 90 Tab 3 12/05/19 20 Active omeprazole (PRILOSEC) 40 mg Oral Capsule, Delayed Release(E.C.)Indic ations:GERD with esophagitis TAKE 1 CAPSULE BY MOUTH EVERY DAY 90 Capsule 3 07/06/19 22 Active tamsulosin (FLOMAX) 0.4 mg Oral Capsule Take 1 Capsule by mouth nightly. 30 Capsule 01/21/20 22 Active Additional Information Patient not taking.Reason: Therapy Completed, Reported on 12/13/2022 acetaminophen 325 mg Oral Tab Take 2 Tablets by mouth every 4 hours as needed for Pain, Fever or Headaches. 01/21/20 22 Active buPROPion (WELLBUTRIN XL) 150 mg Oral Tablet Sustained Release 24 hr Take 150 mg by mouth 2 times daily. Active carisoprodoL (SOMA) 350 mg Oral Tablet Take 350 mg by mouth 3 times daily as needed for Muscle spasms. Active clonazePAM (KLONOPIN) 1 mg Oral Tablet Take 1 mg by mouth nightly as needed for Anxiety. Active metoprolol succinate ER (TOPROL-XL) 100 mg Oral Tablet Sustained Release 24 hr Take 100 mg by mouth daily. Active Active Problems Patient Care Coordination No te Formatting of this note migh t be different from the original. Controlled Substance: Adipex (Percocet non-chronic) Drug Screen: Ministerio: 11/06/2019 appropriate Consents/contracts/rights: 02/07/13, 08/12/13 SOAPP: 1 02/07/13 Problem Noted Date Diagnosed Date Ureterolithiasis 10/01/2022 Acute cystitis without hematuria 10/01/2022 Calculus of ureter 01/24/2022 Overview (01/24/2022): Added automatically from request for surgery [id number] Flank pain 01/19/2022 Postoperative pain 01/18/2022 Chronic low back pain 06/08/2021 Overview (06/08/2021): Vertebral body height and alignment anatomic. No acute fracture deformity. No destructive lesion. Mild disc space narrowing L4-5. Generalized anxiety disorder 11/06/2019 Overview (12/05/2019): [facility] -Referred for counseling -Short term Klonopin 0.5 mg daily during current rn palliative care crisis (mother in law lives with her in hospice, Leticia is the primary caregiver) Well adult exam 08/08/2017 Overview (08/08/2017): 07/2017 Generalized abdominal pain 01/01/2017 s/p egd 06/25/2014 Overview (01/27/2017): 06/24/14 stricture in the gastroesophageal junction- erosive esophagitis- hiatal hernia- dr maria c vanessa 01/26/17 non-erosive esophagitis- dr vanessa Migraine 06/25/2009 Mixed hyperlipidemia 06/25/2009 Overview (12/05/2019): Atorvastatin 20 mg daily Essential hypertension 06/25/2009 Overview (12/05/2019): Amlodipine 5 mg daily Gastroesophageal reflux disease without esophagi tis 06/25/2009 Renal stone 06/25/2009 Overview (06/25/2009): right Endometriosis 06/25/2009 Immunizations Immunization Administration Dates Next Due Influenza Vaccine Quadrivalent 11/17/2017,2013 Influenza Vaccine Quadrivalent PF 11/06/2019 Influenza Vaccine, Unspecified Formulation 12/13,11/25/2009 Influenza Virus Vaccine Quadrivalant, Flublok Pfizer SARS-CoV-2 Vaccine 12+ Yrs (Purple Cap) 0 06/25/2020,06/02/2020 Tdap 05/27/2016 Surgical History Surgery Date Site/Laterality Comments EDILSON AND BSO 02/28/2008 - 02/26/2009 total ABDOMEN SURGERY twisted bowel 6 wks after hysterectomy UPPER GASTROINTESTINAL ENDOSCOPY 10/19/2015 N/A ESOPHAGOGASTRODUODENOSCOPY with push enteroscopy and biopsy; Surgeon: Senthil Mart III, MD; Location: ED ENDOSCOPY; Service: Endoscopy CYST REMOVAL R. OVARY SECTION LAPAROSCOPY 03/17/2017 N/A DIAGNOSTIC LAPAROSCOPY, lysis of adhesions; Surgeon: Deonna Zazueta MD; Location: [facility]; Service: General COLONOSCOPY CHOLECYSTECTOMY 05/06/2019 N/A Robotic Cholecystectomy with Firefly, Robotic Lysis of Adhesions ; Surgeon: Deonna Zazueta MD; Location: [facility]; Service: Robotics BACK SURGERY URETEROSCOPY 01/19/2022 Left CYSTOSCOPY, LEFT URETEROSCOPY, LEFT STENT PLACEMENT; Surgeon: Willi Garcia MD; Location: ED MAIN OR; Service: Urology Medical devices from this surgery are in the Medical Devices section. URETEROSCOPY 01/26/2022 Left CYSTOSCOPY LEFT URETEROSCOPY WITH STONE MANIPULATION LEFT STENT REMOVAL ; Surgeon: Yonathan Caal MD; Location: ED MAIN OR; Service: Urology Medical devices from this surgery are in the Medical Devices section. Medical History Medical History Date Comments Hypertension Hyperlipemia Other disorders of kidney and ureter Anemia Anesthesia complication HARD TO WAKE Abdominal pain ? UNEXPLAINED PA IN -? SCAR TISSUE Chronic kidney disease KIDNEY ST ONES IN PAST Heartburn Diverticulitis Family History Medical History Relation Name Comments High Blood Pressure Brother High Cholesterol Brother COPD Father Heart Disease Father Hypertension Father Heart Disease Maternal Grandfather Cancer Maternal Grandmother Heart Disease Maternal Grandmother COPD Mother Heart Disease Mother Hypertension Mother Cancer Other 1 Grandmother, au nt Heart Disease Other 2 grandfather Hypertension Other 3 aunt Stroke Other 4 CVA uncle Heart Disease Paternal Grandfather Heart Disease Paternal Grandmother Relation Name Status Comments Brother Alive Daughter Alive Father Alive Maternal Grandfather Maternal Grandmother Mother Alive Other 1 Other 2 Other 3 Other 4 Paternal Grandfather Paternal Grandmother Son Alive Social History Tobacco Use Types Packs/Day Years Used Date Smoking Tobacco: Never Smokeless Tobacco: Never Alcohol Use Standard Drinks/Week Comments No 0 (1 standard drink = 0.6 oz pur e alcohol) Overall Financial Resource Strain (CARDIA) Answe r Date Recorded How hard is it for you to pa y for the very basics like food, housing, medical care, and heating? Not very hard 01/25/2022 PHQ-2 Answer Date Recorded PHQ-2 Total Score 4 12/16/2019 [facility] [place] of Occupat ional Health - Occupational Stress [...] on file Sexual Orientation Not on file Last Filed Vital Signs Vital Sign Reading Time Taken Comments Blood Pressure 152/82 11/17/2023 10:00 PM EDT Pulse 82 11/17/2023 8:37 PM EDT Temperature 36.6 C (97.9 F) 11/17/2023 8:44 PM EDT Respiratory Rate 16 11/17/2023 8:37 PM EDT Oxygen Saturation 96% 11/17/2023 10:00 PM EDT Inhaled Oxygen Concentration - - Weight 79.9 kg (176 lb 2.4 oz) 09/20/2023 3:16 P M EDT Height 162.6 cm (5' 4 ) 09/20/2023 3:16 PM EDT Body Mass Index 30.24 09/20/2023 3:16 PM EDT Plan of Treatment Health Maintenance Due Date Last Done Comments Cologuard 05/06/2016 FIT 05/06/2016 Sigmoidoscopy 05/06/2016 Virtual Colonography 05/06/2016 Hepatitis B Vaccine (2 of 3 - 19+ 3-dose series) 01/16/2018 12/19/2017 Breast Cancer Screening 02/16/2020 02/16/20 18, 02/15/2017, 02/15/2016, Additional history exists Annual Wellness Exam 12/04/2020 12/05/2019 Pneumococcal Vaccine 50+ (2 of 2 - PCV20 or PCV21) 05/06/2021 12/19/2017 Zoster (1 of 2) 05/06/2021 Colon Cancer Screening 04/22/2022 Colonoscopy 04/22/2022 04/22/2019 COVID-19 Vaccine ( season) 2024 02/08/2021, 06/25/2020, 06/02/2020 Influenza Vaccine (#1) 2024 , 01/20/2022, 11/06/2019, Additional history exists DTaP/TDaP/Td (2 - Td or Tdap) 05/27/2026 05/27/2016, 05/03/1996 Meningococcal B Vaccine Aged Out No l onger eligible based on patient's age to complete this topic Goals Goal Patient Goal Type Associated Problems Recent Progress Patient-Stated? Author Blood Pressure < 140/90 Blood Pressure 152/82(2023 10:00 PM EDT) No Lizette Ramos RMA Maintain a healthy diet, exercise regularly and maintain an ideal body weight General No Errol Orourke, NAYELI I will drink at least 12 cups of water every day General No Bella Marrqouin RN I will limit the amount of daily sodium to no more than 2000mg/day General No Bella Marroquin RN Medical Devices Explanted Type Area Enrobing Machine Operator Device Identifier Shelf Expiration Date Model / Serial / Lot Stent Uret [id number] Contr Dbl Pig Tapr Lpro Percuflx Cath - [id number] Implanted:Qty : 1 on 01/19/2022 by Willi Garcia MD at [facility] Explanted:Qty : 1 on 01/26/2022 by Yonathan Caal MD at [facility] Stent Left: Ureter [employer]:MICROVASIVE: UROLOGY [id number] 10/27/2024 [id number] Procedures Procedure Name Priority Date/Time Associated Diagnosis Comments GMED EGD-COLONOSCOPY Routine 04/22/2019 7:20 AM EST MM MOBILE DIGITAL HEIDE SCREEN BILAT Routine 02/15/2018 10:10 AM EST Screening for malignant neoplasm of breast from Last 3 Months or Most Recently Relevant to Health Maintenance Results * GMED EGD-COLONOSCOPY (04/22/2019 7:20 AM EST) 04/22/2019 7:20 AM EST Maria C Vanessa MD GI PROCEDURE ORDERABLES Edited R esult - Final [facility] [address] [place], [place] [address] [phone] * MM MOBILE DIGITAL HEIDE SCREEN BILAT (02/15/2018 10:10 AM EST) Anatomical Region Laterality Modality Breast Mammography 02/16/2018 10:0 3 AM EST Impressions 02/16/2018 10:03 AM EST Negative ([id number]) ~ RECOMMENDATION: Routine screening mammogram in 1 year. ~ DISCLAIMER * Any patient with a palpable abnormality, unexplained by breast imaging, should be managed on clinical basis by the attending physician. * Breast imaging has a false negative rate of 15%. * The patient was notified by mail of the results of this examination. *The patient's information was entered into a reminder system with a target due date for the next mammogram. Narrative 02/16/2018 10:03 AM EST Procedure:MM MOBILE DIGITAL HEIDE SCREEN BILAT ~ Reason for exam: screening, asymptomatic. ~ MM MOBILE DIGITAL HEIDE SCREEN BILAT 2D/3D Procedure 3D Bilateral CC and MLO view(s) were taken. 2D Bilateral CC and MLO view(s) were taken. Prior study comparison: February 15, 2017, bilateral MM MOBILE DIGITAL HEIDE SCREEN BILAT performed at [facility]. February 15, 2016, bilateral MM MOBILE MAMMO DIGITAL SCREEN W CAD ELIZABETH performed at [facility]. January 30, 2015, bilateral MM MOBILE MAMMO DIGITAL SCREEN W CAD ELIZABETH performed at [facility]. The breast tissue is heterogeneously dense. This may lower the sensitivity of mammography. Compared with prior studies the most recent being 02-15-17, 02-15-16 and 01-30-15. ~ No mammographic evidence of malignancy. ~ Procedure Note Bessie Villegas MD - 02/16/2018 Procedure:MM MOBILE DIGITAL HEIDE SCREEN BILAT ~ Reason for exam: screening, asymptomatic. ~ MM MOBILE DIGITAL HEIDE SCREEN BILAT 2D/3D Procedure 3D Bilateral CC and MLO view(s) were taken. 2D Bilateral CC and MLO view(s) were taken. Prior study comparison: February 15, 2017, bilateral MM MOBILE DIGITALTOMO SCREEN BILAT performed at [facility]. February 15, 2016, bilateral MM MOBILE MAMMO DIGITAL SCREEN W CAD ELIZABETH performed at [facility]. January 30, 2015, bilateral MM MOBILE MAMMO DIGITAL SCREEN W CAD ELIZABETH performed at [facility]. The breast tissue is heterogeneously dense. This may lower thesensitivity of mammography. Compared with prior studies the most recent being 02-15-17, 02-15-16 and 01-30-15. ~ No mammographic evidence of malignancy. ~ IMPRESSION: Negative ([id number]) ~ RECOMMENDATION: Routine screening mammogram in 1 year. ~ DISCLAIMER * Any patient with a palpable abnormality, unexplained by breast imaging, should be managed on clinical basis by the attending physician. * Breast imaging has a false negative rate of 15%. * The patient was notified by mail of the results of this examination. *The patient's information was entered into a reminder system with atarget due date for the next mammogram. us Edil Al DO IMG MAMMOGRAPHY ORDERABLES Final Result from Last 3 Months or Most Recently Relevant to Health Maintenance Insurance ANTHEM PPO ANTHEM PPO ANTHEM PPO Advance Directives For more information, please contact: [phone] * Full Code (Latest Code Status on File) Date Activated Date Inactivated Comments 10/01/2022 4:57 AM 10/03/2022 5:08 PM * Full Code Date Activated Date Inactivated Comments 01/19/2022 12:29 AM 01/21/2022 4:07 PM * Full Code Date Activated Date Inactivated Comments 01/01/2017 7:52 PM 01/05/2017 5:[address] Service Locksmith Relationship Specialty Start Date End Date Rashawn De Jesus MD PCP - General Family Medicine 01/22/22
== END 2025-01-16 23:59 | disposition home or self-care (01) ==
LOC: RAD 13:52
PROVIDERS: PCP Family Medicine; Visit Provider Nurse Practitioner
DX: Z12.31 Encounter for screening mammogram for malignant neoplasm of breast (principal); R92.323 Mammographic fibroglandular density, bilateral breasts; N60.01 Solitary cyst of right breast; Z80.3 Family history of malignant neoplasm of breast
CPT/HCPCS: 77063; 77067

== ENCOUNTER 2025-02-11 10:49 | Outpatient (CLI) | payer BC, SELFPAY ==
--- NOTE | 2025-02-11 11:00 | US_ITS ---
PROCEDURE INFORMATION: Exam: US Right Breast, Complete Exam date and time: 02/11/2025 11:01 AM Age: 54 years old Clinical indication: Palpable abnormality in the right axilla. Short-term sonographic follow-up of a right 1 o'clock axis probable cyst TECHNIQUE: Imaging protocol: Complete ultrasound of all four quadrants of the right breast and the retroareolar regions, including ultrasound of the axilla when performed. COMPARISON: US BREAST RT COMPLETE 05/30/2022 4:14 PM FINDINGS: ULTRASOUND: Breast ultrasound findings: Sonographic images of the right breast including the retroareolar region, all 4 quadrants and the axilla do not demonstrate any solid or cystic masses. This is with particular attention to the upper-inner quadrant. No architectural distortion or acoustical shadowing. No skin thickening or axillary adenopathy. Patient reports a palpable abnormality in the right axilla. No focal findings. Review of the patient's most recent mammogram dated 01/16/2025 did not demonstrate any suspicious findings. IMPRESSION: No sonographic evidence of malignancy. Further evaluation of a palpable abnormality should be based on clinical grounds regardless of radiographic findings or lack thereof.Annual mammographic screening is recommended unless otherwise clinically indicated. ASSESSMENT: BI-RADS Category 1: Negative.
--- OUTSIDE RECORDS SUMMARY | 2025-02-11 11:07 | XMS_ITS | Encounter Summary ---
Author Organization [place] [address] Care Team Providers Care Aluminum Sheet Cutter Name Role Phone Rashawn De Jesus MD Primary Care Provider [phone] Encounter Details Date Type Department Care Team (Late st Contact Info) Description 08/18/2022 Lab Requisition [facility] [place] [address] Natasha Mix, HAY STACKER OPERATOR [address] [place] [address] [address] [place] [address] Calculus of kidney; Calculus of ureter; Personal [...] Date Recorded PHQ-2 Total Score 4 12/16/2019 [facility] [place] of Occupat ional Health - Occupational Stress [...] Comp See Note 08/21/2022 9:13 AM EDT [employer] Comment: Sample composed primarily of organic material [...] composition determined by FTIR analysis. Performed By: [employer] [address] [place] [id number] Laboratory Operations Coordinator: Waqar Cantu MD, PhD Calculi Mass 12 mg 08/21/2022 9:13 AM EDT [email or web address] Calculi Desc See Note 08/21/2022 9:13 AM EDT [email or web address] Comment: Specimen consists of two brown and alston fragments. The total weight is 12 mg. Calculus URINE SPECIMEN COLLECTION / Unknown 08/18/2022 3:01 PM EDT 08/18/2022 8:01 PM EDT Natasha Mix HAY STACKER OPERATOR MICROBIOLOGY - GENERAL OR DERABLES Final Result [employer] [address] [place] [address] documented in this encounter Visit Diagnoses Diagnosis Calculus of kidney Calculus of ureter Personal history of urinary calculi documented in this encounter Additional Health Concerns Assessment Noted Time PHQ-9 Depression Total Score: 17 020 1:09 PM EDT PHQ-2 Depression Total Score: 4 12/16/19 20 1:09 PM EDT documented as of this encounter Care Teams Aluminum Sheet Cutter Relationship Specialty Start Date End Date Rashawn De Jesus MD PCP - General Family Medicine 01/22/22 documented as of this encounter
--- OUTSIDE RECORDS SUMMARY | 2025-02-11 11:07 | XMS_ITS | Encounter Summary ---
Author Organization [place] [address] Care Team Providers Care Shift Nurse Manager Name Role Phone Edil Al DO Primary Care Provider [phone] Zach Davalos MD Primary Care Provider [phone] Paulina Mullen JAVA APPLICATION DEVELOPER Unavailable Unavail able Rashawn De Jesus MD Primary Care Provider [phone] Reason for Visit * Reason Onset Date Comments Medication Refill 04/27/2017 Encounter Details Date Type Department Care Team (Late st Contact Info) Description 04/27/2017 Refill SEP [facility] [address] [place] [address] Edil Al DO [address] [place] [address] Medication Refill Social History Tobacco [...] documented as of this encounter Care Teams Shift Nurse Manager Relationship Specialty Start Date End Date Edil Al DO [address] [place] [address] PCP - General 12/15/08 12/04/19 Zach Davalos MD [address] [facility] [place] [address] PCP - General Family Medicine 12/05/19 01/21/22 Rashawn De Jesus MD PCP - General Family Medicine 01/22/22 Paulina Mullen LCSW Set Up Machinist 12/05/19 documented as of this encounter
--- OUTSIDE RECORDS SUMMARY | 2025-02-11 11:07 | XMS_ITS | Clinical Summary ---
Author Organization [facility] Primary Care Address [address] [place] [address] Phone Care Team Providers Care Side Gluer Name Role Phone Rashawn De Jesus MD Primary Care Provider [phone] Allergies No known active allergies Medications atorvastatin [...] (01/24/2022): Added automatically from request for surgery [id number] Flank pain 01/19/2022 Postoperative pain 01/18/2022 Chronic low back pain 06/08/2021 Overview (06/08/2021): Vertebral body height and alignment anatomic. No acute fracture deformity. No destructive lesion. Mild disc space narrowing L4-5. Generalized anxiety disorder 11/06/2019 Overview (12/05/2019): Rocio and Ciro -Referred for counseling -Short term Klonopin 0.5 mg daily during current personal care home administrator crisis (mother in law lives with her [...] of adhesions; Surgeon: Deonna Zazueta MD; Location: [facility] OR; Service: General COLONOSCOPY CHOLECYSTECTOMY 05/06/2019 N/A Robotic Cholecystectomy with Firefly, Robotic Lysis of Adhesions ; Surgeon: Deonna Zazueta MD; Location: [facility] OR; Service: Robotics BACK SURGERY [...] Date Recorded PHQ-2 Total Score 4 12/16/2019 [facility] [place] of Occupat ional Health - Occupational Stress [...] of water every day General No Bella Marroquin RN I will limit the amount of daily sodium to no more than 2000mg/day General No Bella Marroquin RN Medical Devices Explanted Type Area Electric Deicer Assembler Device Identifier Shelf Expiration Date Model / Serial / Lot Stent Uret [id number] Contr Dbl Pig Tapr Lpro Percuflx Cath - [id number] Implanted:Qty : 1 on 01/19/2022 by Willi Garcia MD at [facility] Explanted:Qty : 1 on 01/26/2022 by Yonathan Caal MD at [facility] Stent Left: Ureter [employer] SCI:MICROVASIVE: UROLOGY [id number] 10/27/2024 [id number] Procedures Procedure Name Priority Date/Time Associated Diagnosis [...] PROCEDURE ORDERABLES Edited R esult - Final [facility] [address] [place], [place] [address] [phone] * MM MOBILE DIGITAL HEIDE SCREEN BILAT (02/15/2018 10:10 AM EST) Anatomical Region Laterality Modality Breast Mammography 02/16/2018 10:0 3 AM EST Impressions 02/16/2018 10:03 AM EST Negative ([id number]) ~ RECOMMENDATION: Routine screening mammogram in 1 [...] MOBILE DIGITAL HEIDE SCREEN BILAT performed at [facility]. February 15, 2016, bilateral MM MOBILE MAMMO DIGITAL SCREEN W CAD ELIZABETH performed at [facility]. January 30, 2015, bilateral MM MOBILE MAMMO DIGITAL SCREEN W CAD ELIZABETH performed at [facility]. The breast tissue is heterogeneously dense. This [...] MM MOBILE DIGITALTOMO SCREEN BILAT performed at [facility]. February 15, 2016, bilateral MM MOBILE MAMMO DIGITAL SCREEN W CAD ELIZABETH performed at [facility]. January 30, 2015, bilateral MM MOBILE MAMMO DIGITAL SCREEN W CAD ELIZABETH performed at [facility]. The breast tissue is heterogeneously dense. This may lower thesensitivity of mammography. Compared with prior studies the most recent being 02-15-17, 02-15-16 and 01-30-15. ~ No mammographic evidence of malignancy. ~ IMPRESSION: Negative ([id number]-7) ~ RECOMMENDATION: Routine screening mammogram in 1 [...] Advance Directives For more information, please contact: [phone] * Full Code (Latest Code Status on File) Date Activated Date Inactivated Comments 10/01/2022 4:57 AM 10/03/2022 5:08 PM * Full Code Date Activated Date Inactivated Comments 01/19/2022 12:29 AM 01/21/2022 4:07 PM * Full Code Date Activated Date Inactivated Comments 01/01/2017 7:52 PM 01/05/2017 5:53 PM Care Teams Side Gluer Relationship Specialty Start Date End Date Rashawn De Jesus MD PCP - General Family Medicine 01/22/22
== END 2025-02-11 23:59 | disposition home or self-care (01) ==
LOC: RAD 10:50
PROVIDERS: PCP Family Medicine; Visit Provider Nurse Practitioner
DX: R92.8 Other abnormal and inconclusive findings on diagnostic imaging of breast (principal)
CPT/HCPCS: 76641

== ENCOUNTER 2025-02-13 09:46 | Outpatient (CLI) | payer BC, SELFPAY ==
[2025-02-13 16:12] LABS: Hematocrit 37.5 % (37.0-47.0); Hemoglobin 11.3 g/dL (12.2-16.2); Immature Granulocytes % 0 %; Mean Corpuscular HGB Conc 30.1 g/dL (31.8-35.4); Mean Corpuscular Hemoglobin 24.0 pg (27.0-31.2); Mean Corpuscular Volume 79.6 fl (81-99); Nucleated Red Blood Cells % 0 %; Platelet Count 289 K/mm3 (142-424); Red Blood Count 4.71 M/mm3 (4.20-5.40); Red Cell Distribution Width-SD 39.2 fL; White Blood Count 3.8 K/mm3 (4.8-10.8)
[2025-02-13 16:27] LABS: Alanine Aminotransferase 19 U/L (12-78); Albumin Level 4.9 g/dl (3.5-5.0); Albumin/Globulin Ratio 1.4 (1.1-1.8); Alkaline Phosphatase 126 U/L (38-126); Anion Gap 13.5 mEq/L (5-15); Aspartate Amino Transferase 25 U/L (14-36); Bilirubin,Total 0.5 mg/dl (0.2-1.3); Blood Urea Nitrogen 9 mg/dl (7-17); Calcium 9.7 mg/dl (8.4-10.2); Carbon Dioxide 27 mmol/L (22.0-30.0); Chloride 102 mmol/L (98-107); Cholesterol 189 mg/dl (140-200); Creatinine,Serum 0.70 mg/dl (0.52-1.04); Estimated Glomerular Filt Rate 88 ml/min (>60); GFR (African American) 106 ML/MIN (>60); Globulin 3.5 g/dL (1.3-3.2); Glucose 106 mg/dl (74-100); HDL Cholesterol 97 mg/dl (40-60); Potassium 4.5 mmoL/L (3.5-5.1); Sodium 138 mmol/L (136-145); Total Protein,Serum 8.4 g/dl (6.3-8.2); Triglycerides 165 mg/dl (30-150)
--- OUTSIDE RECORDS SUMMARY | 2025-02-14 10:43 | XMS_ITS | Clinical Summary ---
Author Organization [facility] Primary Care Address [address] [place] [address] Phone Care Team Providers Care Complaint Adjuster Name Role Phone Rashawn De Jesus MD Primary Care Provider [phone] Allergies No known active allergies Medications atorvastatin [...] (01/24/2022): Added automatically from request for surgery [id number] Flank pain 01/19/2022 Postoperative pain 01/18/2022 Chronic low back pain 06/08/2021 Overview (06/08/2021): Vertebral body height and alignment anatomic. No acute fracture deformity. No destructive lesion. Mild disc space narrowing L4-5. Generalized anxiety disorder 11/06/2019 Overview (12/05/2019): Rocio and Ciro -Referred for counseling -Short term Klonopin 0.5 mg daily during current care companion crisis (mother in law lives with her [...] of adhesions; Surgeon: Deonna Zazueta MD; Location: [facility] OR; Service: General COLONOSCOPY CHOLECYSTECTOMY 05/06/2019 N/A Robotic Cholecystectomy with Firefly, Robotic Lysis of Adhesions ; Surgeon: Deonna Zazueta MD; Location: [facility]; Service: Robotics BACK SURGERY [...] Date Recorded PHQ-2 Total Score 4 12/16/2019 [facility] [place] of Occupat ional Health - Occupational Stress [...] Marroquin RN Medical Devices Explanted Type Area Dust Sampler Device Identifier Shelf Expiration Date Model / Serial / Lot Stent Uret [id number] Contr Dbl Pig Tapr Lpro Percuflx Cath - [id number] Implanted:Qty : 1 on 01/19/2022 by Willi Garcia MD at [facility] Explanted:Qty : 1 on 01/26/2022 by Yonathan Caal MD at [facility] Stent Left: Ureter [employer] SCI:MICROVASIVE: UROLOGY [id number] 10/27/2024 [id number] Procedures Procedure Name Priority Date/Time Associated Diagnosis [...] PROCEDURE ORDERABLES Edited R esult - Final [facility] [address] [place], [place] [address] [phone] * MM MOBILE DIGITAL HEIDE SCREEN BILAT (02/15/2018 10:10 AM EST) Anatomical Region Laterality Modality Breast Mammography 02/16/2018 10:0 3 AM EST Impressions 02/16/2018 10:03 AM EST Negative ([id number]) ~ RECOMMENDATION: Routine screening mammogram in 1 [...] MOBILE DIGITAL HEIDE SCREEN BILAT performed at [facility]. February 15, 2016, bilateral MM MOBILE MAMMO DIGITAL SCREEN W CAD ELIZABETH performed at [facility]. January 30, 2015, bilateral MM MOBILE MAMMO DIGITAL SCREEN W CAD ELIZABETH performed at [facility]. The breast tissue is heterogeneously dense. This [...] MM MOBILE DIGITALTOMO SCREEN BILAT performed at [facility]. February 15, 2016, bilateral MM MOBILE MAMMO DIGITAL SCREEN W CAD ELIZABETH performed at [facility]. January 30, 2015, bilateral MM MOBILE MAMMO DIGITAL SCREEN W CAD ELIZABETH performed at [facility]. The breast tissue is heterogeneously dense. This may lower thesensitivity of mammography. Compared with prior studies the most recent being 02-15-17, 02-15-16 and 01-30-15. ~ No mammographic evidence of malignancy. ~ IMPRESSION: Negative ([id number]) ~ RECOMMENDATION: Routine screening mammogram in 1 [...] Advance Directives For more information, please contact: [phone] * Full Code (Latest Code Status on File) Date Activated Date Inactivated Comments 10/01/2022 4:57 AM 10/03/2022 5:08 PM * Full Code Date Activated Date Inactivated Comments 01/19/2022 12:29 AM 01/21/2022 4:07 PM * Full Code Date Activated Date Inactivated Comments 01/01/2017 7:52 PM 01/05/2017 5:53 PM Care Teams Complaint Adjuster Relationship Specialty Start Date End Date Rashawn De Jesus MD PCP - General Family Medicine 01/22/22
--- OUTSIDE RECORDS SUMMARY | 2025-02-14 10:43 | XMS_ITS | Encounter Summary ---
Author Organization [place] [address] Care Team Providers Care Air Purifier Servicer Name Role Phone Rashawn De Jesus MD Primary Care Provider [phone] Encounter Details Date Type Department Care Team (Late st Contact Info) Description 08/18/2022 Lab Requisition [facility] [place] [address] Natasha Mix, BALL ENDER [address] [place] [address] [address] [place] [address] Calculus of kidney; Calculus of ureter; Personal [...] Date Recorded PHQ-2 Total Score 4 12/16/2019 [facility] [place] of Occupat ional Health - Occupational Stress [...] Comp See Note 08/21/2022 9:13 AM EDT [employer] Comment: Sample composed primarily of organic material [...] composition determined by FTIR analysis. Performed By: [facility] [address] [place] [address] Senior Validation Engineer: Waqar Cantu MD, PhD Calculi Mass 12 mg 08/21/2022 9:13 AM EDT [employer] Calculi Desc See Note 08/21/2022 9:13 AM EDT [employer] Comment: Specimen consists of two brown and alston fragments. The total weight is 12 mg. Calculus URINE SPECIMEN COLLECTION / Unknown 08/18/2022 3:01 PM EDT 08/18/2022 8:01 PM EDT Natasha Mix BALL ENDER MICROBIOLOGY - GENERAL OR DERABLES Final Result [employer] [address] [place] [address] documented in this encounter Visit Diagnoses Diagnosis Calculus of kidney Calculus of ureter Personal history of urinary calculi documented in this encounter Additional Health Concerns Assessment Noted Time PHQ-9 Depression Total Score: 17 020 1:09 PM EDT PHQ-2 Depression Total Score: 4 12/16/19 20 1:09 PM EDT documented as of this encounter Care Teams Air Purifier Servicer Relationship Specialty Start Date End Date Rashawn De Jesus MD PCP - General Family Medicine 01/22/22 documented as of this encounter
--- OUTSIDE RECORDS SUMMARY | 2025-02-14 10:43 | XMS_ITS | Encounter Summary ---
Author Organization [place] [address] Care Team Providers Care Commercial Real Estate Manager Name Role Phone Edil Al DO Primary Care Provider [phone] Zach Davalos MD Primary Care Provider [phone] Paulina Mullen INSTRUMENT DESIGNER Unavailable Unavail able Rashawn De Jesus MD Primary Care Provider [phone] Reason for Visit * Reason Onset Date Comments Medication Refill 04/27/2017 Encounter Details Date Type Department Care Team (Late st Contact Info) Description 04/27/2017 Refill SEP [facility] [address] [place] [address] Edil Al DO [address] [place] [address] Medication Refill Social History Tobacco [...] documented as of this encounter Care Teams Commercial Real Estate Manager Relationship Specialty Start Date End Date Edil Al DO [address] [place] [address] PCP - General 12/15/08 12/04/19 Zach Davalos MD [address] [facility] [place] [address] PCP - General Family Medicine 12/05/19 01/21/22 Rashawn De Jesus MD PCP - General Family Medicine 01/22/22 Paulina Mullen LCSW Loading Checker 12/05/19 documented as of this encounter
== END 2025-02-13 23:59 | disposition home or self-care (01) ==
LOC: LAB.DROPOF 02-14 10:40
PROVIDERS: PCP Family Medicine; Visit Provider Family Medicine
DX: E55.9 Vitamin D deficiency, unspecified (principal); L03.90 Cellulitis, unspecified; M62.838 Other muscle spasm
CPT/HCPCS: 80053; 80061; 85025